=== PATIENT | male | born 1990 | race African-American/Black ===

== ENCOUNTER 2024-09-01 10:03 | Outpatient (AMB) | payer BC, SELFPAY ==
--- NOTE | 2024-09-01 10:08 | MHC.OFFVIS ---
Intake Visit Reasons: scrotal lesion Intake Note: Patient is present for [facility] Medication: Antibiotic Allergy:NONE Blood Thinner: General Farmer Required: No Allergies No Known Allergies Allergy (Verified 09/01/24 10:09) HPI Comments Details: Hubert is a pleasant male. He is a patient of . He seen for the following urologic conditions - epididymal scarring and cyst Concern regarding changes to epididymis on left side On examination has thickening of epididymis with epididymal scarring worse on the left than the right No reported prior history of STI Minimal discomfort Discussed intervention which would be operative with removal Plan follow-up six-month repeat ultrasound [facility] Medical History (Updated 09/01/24 @ 11:15 by Taran Workman MD) Adjustment disorder with mixed anxiety and depressed mood ADHD (attention deficit hyperactivity disorder) Biceps rupture, distal Weight loss Decreased appetite Blurry vision Polydipsia Scrotal pain Social History (Updated 08/26/24 @ 10:58 by MEÑO Vargas) Alcohol intake: current Alcohol intake frequency: a few times a week Alcohol type: beer Comment: 1-2 times per week Patient Tobacco Use Status: Current everyday Tobacco user Review of Systems Const Denies chills and Denies fever(s) Card Reports no additional complaints and Denies syncope Resp Denies cough GI Denies abdominal pain and Denies heartburn Reports as per HPI and Denies change in libido Neuro Denies syncope Psych Denies change in libido Endo Denies change in libido Physical Exam Const General: cooperative, healthy appearing, comfortable and no acute distress Orientation/consciousness: patient oriented x3 HEENT Face and sinus: Yes normal facial exam Mouth: moist mucous membranes Neck Neck: Yes normal visual inspection, Yes full ROM and Yes trachea midline Chest Chest palpation & inspection: normal inspection of the chest Resp Effort & Inspection: normal respiratory effort, able to speak in complete sentences and no respiratory distress GI Inspection: Yes normal to inspection Back/Spine/Pelvis Cervical Spine: normal cervical lordosis Thoracic/Lumbar Spine: thoracic and lumbar spine normal to inspection Skin General skin exam: no rashes or lesions noted Neuro General: patient oriented x3, gait normal, tone normal and moves all extremities Extrem General: Yes normal to inspection and Yes capillary refill normal Results AMB Urinalysis, Automated UA Leukoctes 0 Doe/uL Last Edit by MASON Edmond on 09/01/24 10:24 UA Nitrite Negative Last Edit by MASON Edmond on 09/01/24 10:24 UA Urobilinogen 0.2 mg/dL Last Edit by MASON Edmond on 09/01/24 10:24 UA Protein 15 mg/dL Last Edit by MASON Edmond on 09/01/24 10:24 UA pH 6.0 Last Edit by MASON Edmond on 09/01/24 10:24 UA Blood 0 Иван/uL Last Edit by MASON Edmond on 09/01/24 10:24 UA Specific [place] 1.020 Last Edit by MASON Edmond on 09/01/24 10:24 UA Ketone Negative Last Edit by MASON Edmond on 09/01/24 10:24 UA Bilirubin 0 mg/dL Last Edit by MASON Edmond on 09/01/24 10:24 UA Glucose 0 mg/dL Last Edit by MASON Edmond on 09/01/24 10:24 Results Reviewed Results Reviewed: Laboratory Last Values Urine pH (Auto) 6.0 09/01/24 10:23 Specific [place] (Auto) 1.020 09/01/24 10:23 Urine Protein (Auto) 15 mg/dL 09/01/24 10:23 Glucose (UA)(Auto) 0 mg/dL 09/01/24 10:23 Urine Ketones (Auto) Negative 09/01/24 10:23 Urine Blood (Auto) 0 Иван/uL 09/01/24 10:23 Urine Nitrite (Auto) Negative 09/01/24 10:23 Urine Bilirubin (Auto) 0 mg/dL 09/01/24 10:23 Urine Urobilinogen (Auto) 0.2 mg/dL 09/01/24 10:23 Leukocyte Esterase (Auto) 0 Doe/uL 09/01/24 10:23 Assessment & Plan Assessment & Plan (1) Epididymal cyst: Code(s): N50.3 - Cyst of epididymis Category: Medical Plan Six-month follow-up scrotal ultrasound Orders: Orders AMB Urinalysis Automated 09/01/24 Z13.9 - Encounter for screening, unspecified US scrotum 6 Months N50.3 - Cyst of epididymis Patient Instructions: Imaging studies, laboratory and physical exam results were discussed and reviewed in detail. No major barriers to patient understanding were identified. An opportunity to ask questions regarding the treatment plan was provided. All questions were answered. The patient expressed understanding and agreement with the above treatment plan. The patient is aware they should contact our office by phone for worsening of their current condition or the appearance of new urologic symptoms. Compliance is encouraged with any medications and followup testing that is ordered. It is a privilege to participate in the urologic care of your patient. If you have any questions or concerns regarding treatment for the above conditions, or other urologic issues, please do not hesitate to contact me. The office telephone contact is [phone]. This note is constructed using voice recognition software. While every effort has been made to ensure accuracy lapper errors may have been included. Yours sincerely, Dr Taran Workman MD, [facility] - Urology Providers of Expert, Compassionate Care for the Genitourinary System Coding Level of Care Code New Pt Level 3 (87254) Diagnoses Epididymal cyst N50.3
== END 2024-09-01 11:18 | disposition home or self-care (01) ==
PROVIDERS: PCP Nurse Practitioner Family; Visit Provider Urology
DX: N50.3 Cyst of epididymis (principal)
CPT/HCPCS: 99203

== ENCOUNTER → 2024-09-01 10:03 | Outpatient (BNVA) | payer BC, SELFPAY | PROVIDERS: PCP Nurse Practitioner Family; Visit Provider Urology | DX: N50.3 Cyst of epididymis (principal) | CPT/HCPCS: 81003 ==

== ENCOUNTER 2024-12-14 07:31 | Inpatient (IN) | payer BC, SELFPAY ==
--- NOTE | ~2024-12-14 | CT_ITS ---
EXAMINATION: CT ABDOMEN PELVIS WITH IV CONTRAST HISTORY: severe constipation, vomiting, distention COMPARISON: There are no prior studies for comparison. TECHNIQUE: CT scan of the abdomen and pelvis was performed following administration of 85 mL Omnipaque 350 using standard departmental protocol. Coronal and sagittal reformatted images were generated and reviewed. Oral contrast material was not administered at the request of the referring physician. This CT exam was performed with one or more of the following dose reduction techniques: automated exposure control, adjustment of the mA and/or kV according to patient size, use of iterative reconstruction technique. DLP: 553 mGy-cm FINDINGS: LOWER CHEST: The visualized lung bases are clear. There is no pleural effusion. CARDIOVASCULATURE: The heart is normal in size. There is no pericardial effusion. LIVER: The liver is normal in size and contour. No liver mass is identified. The hepatic and portal veins are patent. GALLBLADDER / BILE DUCTS: The gallbladder is unremarkable. There is no intra or extrahepatic biliary ductal dilatation. SPLEEN: The spleen is enlarged, measuring 17.1 x 8.0 x 13.3 cm. No focal splenic lesion is identified. PANCREAS: The pancreas is unremarkable in appearance. ADRENAL GLANDS: Within normal limits. KIDNEYS/RETROPERITONEUM: No renal calculi are identified. There is no hydronephrosis. No renal masses are identified. LYMPH NODES: There are multiple subcentimeter para-aortic and mesenteric lymph nodes which are more notable for number than size. VASCULATURE: The abdominal aorta is normal in caliber. MESENTERY/PERITONEUM: No free fluid. No masses. There is no free intraperitoneal gas. STOMACH: The stomach is collapsed, limiting evaluation. SMALL BOWEL: The small bowel is normal in caliber. COLON: The colon is unremarkable. APPENDIX: There is a large amount of stool throughout the colon. URINARY BLADDER/PELVIC ORGANS: The urinary bladder is unremarkable. The prostate is normal in size. BONES / SOFT TISSUES: No suspicious bony or soft tissue abnormalities. CT/CT abdomen pelvis w IV con IMPRESSION: 1. Splenomegaly. 2. Prominent para-aortic and mesenteric lymph nodes, more notable for number than size. 3. Large amount of stool throughout the colon. Electronically signed by: Rony Zee MD 12/14/2024 08:50 AM EDT RP
--- NOTE | ~2024-12-14 | CT_ITS ---
EXAMINATION: CT CHEST WITHOUT IV CONTRAST INDICATION: eval for mediastinal lymphadenopathy - high Ca++ COMPARISON: There are no prior studies available for comparison. TECHNIQUE: Helical CT scan of the chest was performed without intravenous contrast. Coronal and sagittal reformatted images were generated and reviewed. This CT exam was performed with one or more of the following dose reduction techniques: automated exposure control, adjustment of the mA and/or kV according to patient size, use of iterative reconstruction technique. DLP: 200 mGy-cm CHEST: THYROID: The thyroid is unremarkable. LUNGS: There is minimal scarring in the anterior aspect of the right upper lobe. There are no focal airspace opacities or pulmonary nodules. MEDIASTINUM: There are enlarged paratracheal lymph nodes measuring up to 1.7 cm in size. There are enlarged AP window lymph nodes measuring up to 1.4 cm. There is a 2.5 cm subcarinal lymph node. SANDEEP: Evaluation of the hilar regions is limited by lack of intravenous contrast material. However, there is prominence of the bilateral hilar regions suggestive of lymphadenopathy. CARDIOVASCULATURE: The heart is normal in size. There is no pericardial effusion. The thoracic aorta is normal in caliber. DEGREE OF CORONARY CALCIFICATION: none PLEURA: There is no pleural effusion. No pneumothorax. MAIN AIRWAYS: The mainstem bronchi and proximal branches are patent. AXILLA: There are prominent bilateral axillary lymph nodes measuring up to 1.7 cm on the right and 1.3 cm on the left. BONES AND SOFT TISSUES: Unremarkable UPPER ABDOMEN: The visualized portions of the liver and adrenals have an unremarkable unenhanced appearance. There is splenomegaly as noted on abdominal CT performed 12/14/2024. CT/CT chest wo IV con IMPRESSION: 1. Mediastinal lymphadenopathy as described. 2. Probable bilateral hilar lymphadenopathy. However, evaluation is limited by lack of intravenous contrast material. 3. Prominent bilateral axillary lymph nodes. 4. Splenomegaly is seen on prior abdominal CT. Electronically signed by: Rony Zee MD 12/15/2024 10:40 AM EDT
--- NOTE | ~2024-12-14 | XR_ITS ---
EXAMINATION: XR CHEST 1 VIEW HISTORY: ?Mediastinal lymphadenopathy/ lung lesion- high ca COMPARISON: There are no prior studies for comparison. FINDINGS: Two AP portable views of the chest performed at 3:50 PM are submitted. The lungs are expanded and clear. There is no pleural effusion, pneumothorax, or pulmonary vascular congestion. The heart is normal in size. Prominence of the paratracheal stripes and hilar regions may be due to AP portable technique. The bones are intact. XR/XR chest 1V IMPRESSION: The lungs are clear. There is prominence of the mediastinal stripes and hilar regions which may be due to AP portable technique. If there is clinical concern for mediastinal lymphadenopathy, chest CT is advised. Electronically signed by: Rony Zee MD 12/15/2024 07:12 AM EDT
[2024-12-14 07:34] VITALS: BP 134/77; PULSE 89; RESP 16; TEMP 36.3; O2SAT 100; BMI 28.1
[2024-12-14 07:53] LABS: MANUAL DIFF FLAG NO
[2024-12-14 07:56] LABS: Basophils Absolute Auto 0.1 X10*3/uL (0.0-0.2); Eosinophils Absolute Auto 0.3 X10*3/uL (0.0-0.4); Eosinophils Percent Auto 5.3 % (0-4); Hematocrit 33.4 % (42.0-52.0); Imm Gran Abs Auto 0.02 X10*3/uL (0.00-0.03); Imm Gran Pct Auto 0.3 % (0.0-0.4); Lymphocytes Percent Auto 16.4 % (20-40); Mean Corpuscular HGB Conc 32.9 g/dl (31.0-36.0); Mean Corpuscular Hemoglobin 24.8 pg (27.0-33.0); Mean Corpuscular Volume 75.4 fL (80.0-98.0); Mean Platelet Volume 9.6 fL (9.4-12.4); Monocytes Absolute Auto 1.1 X10*3/uL (0.1-1.2); Neutrophils Absolute Auto 3.6 x10*3/uL (2.0-8.3); Platelet Count 215 X10*3/uL (160-400); Red Blood Count 4.43 X10*6/uL (4.60-5.80); Red Cell Distribution Width 16.6 % (11.0-16.0); White Blood Count 6.2 X10*3/uL (4.8-10.8)
[2024-12-14] MEDS: 0.9 % Sodium Chloride 1,000 ML 999 ML IV ×2 (07:57→08:47)
--- NOTE | 2024-12-14 07:58 | ED_ITS ---
HPI - Abdominal Pain General Chief Complaint: Abdominal Pain Stated Complaint: abd pain Time Seen by Provider: 12/14/24 07:45 Source: patient and old records reviewed Mode of arrival: ambulatory Limitations: no limitations History of Present Illness ED Provider: JAMIL HPI narrative: 34 yo male with PMH of Fe deficiency anemia who has been taking Fe pills for a few weeks now reports 1.5 weeks of constipation. Vomits only on the weekend. His has been able to pass flatus. He has never had any abdominal surgery. He never had constipation as a child. He notes his PCP started him on Fe. He denies fevers. He can tolerate PO. Has not taken any OTC meds for constipation. He was seen at urgent care they requested he go to ED for obstruction rule out. MD elicited complaint: abdominal pain Onset (ago): day(s) (10) Pain Consistency: intermittent Location: diffuse Severity: mild Quality: fullness Radiation: none Migration to: no migration Exacerbating factors: eating Relieving factors: nothing Context: other Associated symptoms: constipation Related Data Home Medications ?Medication ?Instructions ?Recorded ?Confirmed fluoxetine 40 mg capsule mg PO 09/01/24 quetiapine 25 mg tablet 25 mg PO BEDTIME 09/01/24 zolpidem 10 mg tablet 10 mg PO BEDTIME PRN 09/01/24 Allergies Allergy/AdvReac Type Severity Reaction Status Date / Time No Known Allergies Allergy Verified 12/14/24 07:36 Review of Systems Review of Systems Constitutional : No Weight loss, No Fever, No Chills ENT/Mouth : No sore throat, No Rhinorrhea Eyes: No Swelling, No Redness Cardiovascular : No Chest Pain, No SOB, NoEdema Respiratory : No Cough, No Sputum, No Wheezing Gastrointestinal : Positive Nausea, Positive Vomiting, no Diarrhea, positive abdominal Pain, No Hematochezia, No Melena, pos constipation Genitourinary : No Dysuria, No Urinary Frequency, No Hematuria, No Urgency Musculoskeletal : No joint pain, No Myalgias, No Joint Swelling Skin : No Skin Lesions, No rash Neuro : No Weakness, No Numbness, No Dizziness, No Headache All other systems reviewed and are negative. [facility] Past Medical History Attestation statement: The following information was validated with the patient. Source: old records reviewed Medical History Adjustment disorder with mixed anxiety and depressed mood ADHD (attention deficit hyperactivity disorder) Biceps rupture, distal Weight loss Decreased appetite Blurry vision Polydipsia Scrotal pain Social History Social History Alcohol intake: current Alcohol intake frequency: a few times a week Alcohol type: beer Comment: 1-2 times per week Patient Tobacco Use Status: Current everyday Tobacco user Smoked in Last 30 Days: No Use of substances other than those prescribed or required for medical reasons: No Advance Directives: No Advance Directives Information Provided: Yes Do you have a plan to hurt others: No Plan Physical Exam ED Vital Signs: Vital Signs - 24 hr 12/14/24 07:34 Temperature 97.4 F Pulse Rate 89 Respiratory Rate 16 Blood Pressure 134/77 Pulse Oximetry 100 Oxygen Delivery Method Room Air BMI result Body Mass Index 28.1 Appearance: Alert. Oriented X3. No acute distress. Eyes: Pupils equal, round and reactive to light. ENT: Pharynx normal. Neck: Normal inspection. Neck supple. CVS: Normal heart rate and rhythm. Pulses normal. Respiratory: No respiratory distress. Breath sounds normal. Abdomen: Soft mild distention no rebound or guarding Skin: Skin warm and dry. Normal skin color. Extremities: No lower extremity edema. Neuro: Oriented X 3. No motor deficit. No sensory deficit. CN2-12 intact Medical Decision Making Medical Decision Making [facility] Narrative: 34 yo male with Fe deficiency anemia on Fe pills recently now with constipation intermittent vomiting is able to pass gas. Given the degree of constipation and lack of BM x 7 days with some distention I am going to obtain lytes, hydrate, CT scan for mass/obstruction/ileus. If negative for acute bowel pathology will start on regimen and take off Fe pills. Differential Diagnosis Differential Diagnoses: The differential diagnosis associated with the presentation includes constipation, ileus, SBO, mass Admission/Observation Consideration of admission/observation: Escalation of care including admission/observation considered admit for fluids/meds/calcium recheck Consult Healthcare Provider Management of the patient was discussed with: Hospitalist (will admit to hospitalist 910am message sent) Lab Data [facility] Lab Attestation statement: I reviewed the patient's lab results. 12/14/24 07:49 12/14/24 07:49 Labs: Lab Results 12/14/24 Range/Units 07:49 WBC 6.2 (4.8-10.8) X10*3/uL RBC 4.43 L (4.60-5.80) X10*6/uL Hgb 11.0 L (14.0-18.0) g/dl Hct 33.4 L (42.0-52.0) % MCV 75.4 L (80.0-98.0) fL MCH 24.8 L (27.0-33.0) pg MCHC 32.9 (31.0-36.0) g/dl RDW 16.6 H (11.0-16.0) % Plt Count 215 (160-400) X10*3/uL MPV 9.6 (9.4-12.4) fL Immature Gran % (Auto) 0.3 (0.0-0.4) % Neut % (Auto) 59.0 (45-73) % Lymph % (Auto) 16.4 L (20-40) % [place] % (Auto) 18.0 H (2-11) % Eos % (Auto) 5.3 H (0-4) % Baso % (Auto) 1.0 (0-2) % Lymph # (Auto) 1.0 L (1.2-4.9) X10*3/uL [place] # (Auto) 1.1 (0.1-1.2) X10*3/uL Eos # (Auto) 0.3 (0.0-0.4) X10*3/uL Baso # (Auto) 0.1 (0.0-0.2) X10*3/uL Abs Immat Gran (auto) 0.02 (0.00-0.03) X10*3/uL Absolute Neuts (auto) 3.6 (2.0-8.3) x10*3/uL Absolute Nucleated RBC 0.000 (0.0-0.012) X10*3/uL Nucleated RBC % (auto) 0.0 (0.0-0.2) /100WBC Sodium 139 (135-145) mmol/L Potassium 3.5 (3.3-5.1) mmol/L Chloride 107 (96-108) mmol/L Carbon Dioxide 27 (22-29) mmol/L Anion Gap 9 L (12-20) BUN 19 H (9-16) mg/dL Creatinine 1.52 H (0.5-1.4) mg/dL Estim Creat Clear Calc 75.1 Estimated GFR 53 Random Glucose 95 (60-115) mg/dL Calcium 12.6 H* (8.4-10.2) mg/dL Magnesium 1.9 (1.6-2.6) mg/dL Total Bilirubin 0.3 (0.0-1.0) mg/dL AST 22 (5-37) U/L ALT 17 (0-40) U/L Alkaline Phosphatase 89 (39-117) U/L Total Protein 8.0 (6.5-8.0) g/dL Albumin 3.8 (3.5-5.0) g/dL Lipase 60 (8-78) U/L Independent Interpretation I performed an independent interpretation of an: EKG and CT Scan (constipation) Interpretation: Rate: 72 Rhythm: NSR Bly: normal Normal P waves. Normal RONNY. Normal QRS complex. ST T wave : normal no HYACINTH qTC: 385 prior studies: no acute ischemia The study has been interpreted contemporaneously by me. . Radiology Impression Discussion of test interpretation with radiology: I have reviewed the radiologist's reading. External Record Review External record reviewed: Outpatient record Medications Administered Generic Name Dose Route Start Last Admin Trade Name Freq PRN Reason Stop Dose Admin Sodium Chloride 1,000 mls @ 999 mls/hr 12/14/24 08:20 12/14/24 08:47 Ns IV 12/14/24 09:20 999 mls/hr .Q1H1M ONE Administration Discontinued Medications Generic Name Dose Route Start Last Admin Trade Name Freq PRN Reason Stop Dose Admin Sodium Chloride 1,000 mls @ 999 mls/hr 12/14/24 07:55 12/14/24 07:57 Ns IV 12/14/24 08:55 999 mls/hr .Q1H1M ONE Administration Iohexol 100 ml 12/14/24 08:37 12/14/24 08:38 Iohexol 350 Mg/Ml 100 Ml Infus..Btl IV 12/14/24 08:38 85 ml ONCE ONE Administration Discharge Plan Discharge Clinical Impression: Constipation, Acute hyperkalemia, Acute dehydration Patient Disposition: Admitted As Inpatient Prescriptions: No Action zolpidem 10 mg tablet 10 mg PO BEDTIME PRN fluoxetine 40 mg capsule PO quetiapine 25 mg tablet 25 mg PO BEDTIME Print Language: Welsh
--- OUTSIDE RECORDS SUMMARY | 2024-12-14 07:59 | XMS_ITS | Clinical Summary ---
Author Organization [facility] [address] [place] [address] [place] [phone] Phone Care Team Providers Care Outside Sales Inspector Name Role Phone Castro Manzanares MD Primary Care Provider [phone] Allergies No known active allergies Medications FLUoxetine (PROzac) 20 mg capsuleIndicati ons:major depressive disorder Take 4 capsules (80 mg total) by mouth 1 (one) time each day. Prescribe by Psychiatrist. Active zolpidem (AMBIEN) 10 mg tablet Take 1 tablet (10 mg total) by mouth at bedtime as needed for sleep. Prescribe by Psych Active ferrous sulfate 325 mg (65 mg iron) EC tablet Take 1 tablet (325 mg total) by mouth 2 (two) times a day. Do not crush, chew, or split. 90 each 1 5 09/29/19 26 Active senna-docusate (PERICOLACE) 8.6-50 mg per tablet Take 1 tablet by mouth 1 (one) time each day. 30 each 5 09/29/19 26 Active ergocalciferol (VITAMIN D-2) 1,250 mcg (50,000 unit) capsule Take 1 capsule (50,000 Units total) by mouth 1 (one) time per week. 12 capsule 5 Active Active Problems Problem Noted Date Diagnosed Date Biceps rupture, distal, right, sequela 3 ADHD (attention deficit hyperactivity disorder) 09/07/2019 Overview (06/14/2024): S/p formal neuropsych testing 08/2019 Adjustment disorder with mixed anxiety and depre ssed mood 04/21/2019 Polydipsia Blurry vision Decreased appetite Weight loss Low blood pressure reading Encounters Date Type Department Care Team Description 09/22/2024 Telephone Adult [address] [place], [place] [phone] Britta Casas, AMEYA Lab Results (Vitamin D extremely low. /CBC show anemia ) 09/21/2024 2:30 PM EST Office Visit Adult [address] [phone] Britta Casas, AMEYA Unintentional weight loss (Primary Dx); Scrotal mass; Tiredness; Elevated LFTs; Moderate episode of recurrent major depressive disorder (CMS/HCC) from Last 3 Months Immunizations Name Administration Dates Next Due DTaP, Unspecified 06/08/1992,03/21/1992,01/25/19 92 HiB 06/08/1992,03/21/1992,01/26/1992 OPV 03/21/1992,01/26/1992 Tdap Tetanus diptheria acell ular pertussis (Boostrix; Adacel) 7yo and older 11/14/2018 Surgical History Surgery Date Site/Laterality Comments OTHER SURGICAL HISTORY PROCEDURE: DENIES PREVIOUS SURGERY Medical History Medical History Date Comments Adhd 10/13/2018 DX:ADHD Depression 10/13/2018 DX:Depression Family History Medical History Relation Name Comments No Known Problems Brother 1 No Known Problems Brother 2 No Known Problems Brother 3 No Known Problems Brother 4 No Known Problems Brother 5 No Known Problems Brother 6 Other: organ failure Father No Known Problems Mother No Known Problems Sister 1 No Known Problems Sister 2 No Known Problems Sister 3 No Known Problems Sister 4 No Known Problems Sister 5 No Known Problems Sister 6 No Known Problems Sister 7 Relation Name Status Comments Brother 1 Alive Brother 2 Alive Brother 3 Alive Brother 4 Alive Brother 5 Alive Brother 6 Alive Father Mother Alive Sister 1 Alive Sister 2 Alive Sister 3 Alive Sister 4 Alive Sister 5 Alive Sister 6 Alive Sister 7 Alive Social History Tobacco Use Types Packs/Day Years Used Date Smoking Tobacco: Light Smoker Smokeless Tobacco: Never Alcohol Use Standard Drinks/Week Comments Yes 0 (1 standard drink = 0.6 oz pur e alcohol) Sex and Gender Information Value Date Recorded Sex Assigned at Not on file Legal Sex Male 8:42 PM EST Gender Identity Not on file Sexual Orientation Not on file Obstetrics History Last Filed Vital Signs Vital Sign Reading Time Taken Comments Blood Pressure 99/60 09/21/2024 2:37 PM EST Pulse 100 09/21/2024 2:37 PM EST Temperature 36.2 ??C (97.2 ??F) 09/21/2024 2:37 PM ES T Respiratory Rate 16 09/21/2024 2:37 PM EST Oxygen Saturation 98% 09/21/2024 2:37 PM EST Inhaled Oxygen Concentration - - Weight 88.5 kg (195 lb 3.2 oz) 09/21/2024 2:37 P M EST Height 175.3 cm (5' 9 ) 09/21/2024 2:37 PM EST Body Mass Index 28.83 09/21/2024 2:37 PM EST Plan of Treatment Upcoming Encounters Date Type Department Care Team (Late st Contact Info) Description 12/23/2024 9:45 AM EDT Office Visit Adult Medicine [facility] [address] [place] [phone] Castro Manzanares MD [address] [place] [address] Health Maintenance Due Date Last Done Comments IPV Vaccines (3 of 3 - 4-dose series) 1995 03/21/1992, 01/26/1992 Hepatitis B Vaccines (1 of 3 - 19+ 3-dose series) 2010 Pneumococcal Vaccine: Pediatrics (0 to 5 Years) and At-Risk Patients (6 to 64 Years) (1 of 2 - PCV) 2010 HIV Screening 08/18/2022 Hepatitis C Screening 08/18/2022 Social Influencers of Health Screening 08/18/2022 COVID-19 Vaccine ( - 2023- season) 2024 Influenza Vaccine (#1) 2024 Depression Screening 05/18/2025 05/18/2024 DTaP,Tdap,and Td Vaccines (5 - Td or Tdap) 11/14/2028 11/14/2018, 06/08/1992, 03/21/1992, Additional history exists Cholesterol Screening (Lipid Panel) 04/22/2029 04/22/2024, 04/22/2024 HIB Vaccines Aged Out 06/08/1992, 03/09, 01/26/1992 No longer eligible based on patient's age to complete this topic HPV Vaccines Aged Out No longer eligi ble based on patient's age to complete this topic Hepatitis A Vaccines Aged Out No long er eligible based on patient's age to complete this topic MMR Vaccines Aged Out No longer eligi ble based on patient's age to complete this topic Meningococcal ACWY Vaccine Aged Out N o longer eligible based on patient's age to complete this topic Meningococcal B Vacine Aged Out No lo nger eligible based on patient's age to complete this topic RSV Immunization Patients Under 20 months Aged Out No longer eligible based on patient's age to complete this topic Varicella Vaccines Aged Out No longer eligible based on patient's age to complete this topic Procedures Procedure Name Priority Date/Time Associated Diagnosis Comments BILIRUBIN DUPLICATE PROCEDURE TO ORDER Routine 09/21/2024 3:25 PM EST Unintentional weight loss Elevated LFTs CBC WITH AUTO DIFFERENTIAL Routine 09/21/2024 3:25 PM EST Unintentional weight loss Tiredness Moderate episode of recurrent major depressive disorder (CMS/HCC) CBC AND DIFFERENTIAL Routine 09/21/2024 3:25 PM EST Unintentional weight loss Tiredness Moderate episode of recurrent major depressive disorder (CMS/HCC) FOLATE Routine 09/21/2024 3:25 PM EST Unintentional weight loss Tiredness Moderate episode of recurrent major depressive disorder (CMS/HCC) VITAMIN B12 Routine 09/21/2024 3:25 PM EST Unintentional weight loss Tiredness Moderate episode of recurrent major depressive disorder (CMS/HCC) VITAMIN D 25 HYDROXY Routine 09/21/2024 3:25 PM EST Unintentional weight loss Tiredness Moderate episode of recurrent major depressive disorder (CMS/HCC) THYROID STIMULATING HORMONE WITH REFLEX TO FREE T4 AND FREE T3 Routine 09/21/2024 3:25 PM EST Unintentional weight loss Tiredness Moderate episode of recurrent major depressive disorder (CMS/HCC) COMPREHENSIVE METABOLIC PANEL Routine 09/21/2024 3:25 PM EST Unintentional weight loss HM DEPRESSION SCREENING Routine 05/18/2024 LIPID PANEL Routine 04/22/2024 from Last 3 Months or Most Recently Relevant to Health Maintenance Results * Bilirubin duplicate procedure to order (09/21/2024 3:25 PM EST) Total Bilirubin 0.4 0.0 - 1.4 mg/dL LAB CHEMISTRY METHOD 09/21/2024 7:38 PM EST [facility] Bilirubin, Direct <0.1 0.0 - 0.3 mg/dL LAB CHEMISTRY METHOD 09/21/2024 7:38 PM EST [facility] Bilirubin, Indirect LAB CHEMISTRY METHOD 09/21/2024 7:38 PM EST [facility] Comment:Unable to calculate Indirect Bilirubin. Blood Venous blood specimen / Unknown Venipuncture / Unknown 09/21/2024 3:25 PM EST 09/21/2024 3:25 PM EST us Britta Casas DREDGE PUMPER LAB BLOOD ORDERABLES Final R esult [facility] [address] [place] [address], * Thyroid stimulating hormone with reflex to free t4 and free t3 (09/21/2024 3:25 PM EST) TSH 1.81 0.40 - 4.00 mcIU/mL LAB CHEMISTRY METHOD 09/21/2024 7:20 PM EST [facility] Blood Venous blood specimen / Unknown Venipuncture / Unknown 09/21/2024 3:25 PM EST 09/21/2024 3:25 PM EST us Britta Casas [employer]ED[employer]ER LAB BLOOD ORDERABLES Final R esult [facility] [address] [place] [address], * (ABNORMAL) CBC auto differential (09/21/2024 3:25 PM EST) WBC 3.4(L) 4.8 - 10.8 K/mcL LAB HEMETOLOGY METHOD 09/21/2024 4:47 PM [facility] RBC 5.20 4.50 - 5.50 M/mcL LAB HEMETOLOGY METHOD 09/21/2024 4:47 PM [facility] Hemoglobin 12.3(L) 13.5 - 17.5 g/dL LAB HEMETOLOGY METHOD 09/21/2024 4:47 PM [facility] Hematocrit 39.2(L) 42.0 - 54.0 % LAB HEMETOLOGY METHOD 09/21/2024 4:47 PM [facility] MCV 75.0(L) 79.0 - 98.0 FL LAB HEMETOLOGY METHOD 09/21/2024 4:47 PM [facility] MCH 23.5(L) 27.0 - 32.0 pcg LAB HEMETOLOGY METHOD 09/21/2024 4:47 PM [facility] MCHC 31.4(L) 32.0 - 37.0 g/dL LAB HEMETOLOGY METHOD 09/21/2024 4:47 PM [facility] RDW 15.0 11.0 - 15.0 % LAB HEMETOLOGY METHOD 09/21/2024 4:47 PM [facility] Platelets 231 130 - 400 K/mcL LAB HEMETOLOGY METHOD 09/21/2024 4:47 PM [facility] MPV 10.5 7.0 - 11.0 FL LAB HEMETOLOGY METHOD 09/21/2024 4:47 PM [facility] NRBC 0.0 <1.0 % LAB HEMETOLOGY METHOD 09/21/2024 4:47 PM [facility] NRBC Absolute 0.00 <0.10 K/mcL LAB HEMETOLOGY METHOD 09/21/2024 4:47 PM [facility] Neutrophils Relative 50.6 % LAB HEMETOLOGY METHOD 09/21/2024 4:47 PM [facility] Lymphocytes Relative 18.2 % LAB HEMETOLOGY METHOD 09/21/2024 4:47 PM [facility] Monocytes Relative 20.5 % LAB HEMETOLOGY METHOD 09/21/2024 4:47 PM [facility] Eosinophils Relative 8.3 % LAB HEMETOLOGY METHOD 09/21/2024 4:47 PM [facility] Basophils Relative 1.8 % LAB HEMETOLOGY METHOD 09/21/2024 4:47 PM [facility] Immature Granulocytes Relative 0.6 % LAB HEMETOLOGY METHOD 09/21/2024 4:47 PM [facility] Neutrophils Absolute 1.70 1.50 - 7.00 K/mcL LAB HEMETOLOGY METHOD 09/21/2024 4:47 PM [facility] Lymphocytes Absolute 0.61(L) 1.00 - 5.00 K/mcL LAB HEMETOLOGY METHOD 09/21/2024 4:47 PM [facility] Monocytes Absolute 0.69 0.20 - 1.00 K/mcL LAB HEMETOLOGY METHOD 09/21/2024 4:47 PM [facility] Eosinophils Absolute 0.28 0.00 - 0.50 K/mcL LAB HEMETOLOGY METHOD 09/21/2024 4:47 PM [facility] Basophils Absolute 0.06 0.00 - 0.20 K/mcL LAB HEMETOLOGY METHOD 09/21/2024 4:47 PM EST [facility] Immature Granulocytes Absolute 0.02 0.00 - 0.03 K/[facility] LAB HEMETOLOGY METHOD 09/21/2024 4:47 PM EST [facility] Blood Venous blood specimen / Unknown Venipuncture / Unknown 09/21/2024 3:25 PM EST 09/21/2024 3:25 PM EST Britta Casas [employer]ED[employer]ER LAB BLOOD ORDERABLES Final R esult [facility] [address] [place] [address], [place] [phone] * (ABNORMAL) Vitamin D 25 hydroxy (09/21/2024 3:25 PM EST) Vit D, 25-Hydroxy 6.6(L) 30.0 - 80.0 ng/mL LAB CHEMISTRY METHOD 09/21/2024 7:20 PM EST [facility] Blood Venous blood specimen / Unknown Venipuncture / Unknown 09/21/2024 3:25 PM EST 09/21/2024 3:25 PM EST Britta Casas [employer]ER LAB BLOOD ORDERABLES Final R esult [facility] [address] [place] [address], [place] [phone] * Folate (09/21/2024 3:25 PM EST) Folate 7.6 2.8 - 17.0 ng/ml LAB CHEMISTRY METHOD 09/21/2024 7:38 PM EST [facility] Blood Venous blood specimen / Unknown Venipuncture / Unknown 09/21/2024 3:25 PM EST 09/21/2024 3:25 PM EST Britta Casas [employer]ED[employer]ER LAB BLOOD ORDERABLES Final R esult [facility] [address] [place] [address], [place] [phone] * Vitamin B12 (09/21/2024 3:25 PM EST) Pathologist [facility] Vitamin B-12 761 250 - 900 pcg/mL LAB CHEMISTRY METHOD 09/21/2024 7:38 PM [facility] Blood Venous blood specimen / Unknown Venipuncture / Unknown 09/21/2024 3:25 PM EST 09/21/2024 3:25 PM EST Britta Casas [employer]ED[employer]ER LAB BLOOD ORDERABLES Final R esult Performing Organization Address City/[facility]/ZIP Co de Phone Number [facility] [address] [place] [address], [place] [phone] * Comprehensive metabolic panel (09/21/2024 3:25 PM EST) [facility] Sodium 134 133 - 145 mmol/L LAB CHEMISTRY METHOD 09/21/2024 7:38 PM [facility] Potassium 3.8 3.5 - 5.5 mmol/L LAB CHEMISTRY METHOD 09/21/2024 7:38 PM [facility] Chloride 102 96 - 110 mmol/L LAB CHEMISTRY METHOD 09/21/2024 7:38 PM [facility] CO2 23 21 - 32 mmol/L LAB CHEMISTRY METHOD 09/21/2024 7:38 PM [facility] Anion Gap 9 3 - 11 LAB CHEMISTRY METHOD 09/21/2024 7:38 PM [facility] Glucose 73 70 - 100 mg/dL LAB CHEMISTRY METHOD 09/21/2024 7:38 PM [facility] BUN 9 5 - 25 mg/dL LAB CHEMISTRY METHOD 09/21/2024 7:38 PM [facility] Creatinine 0.99 0.70 - 1.30 mg/dL LAB CHEMISTRY METHOD 09/21/2024 7:38 PM [facility] eGFR 104 >=60 mL/min/1. 73m2 LAB CHEMISTRY METHOD 09/21/2024 7:38 PM [facility] Comment:Calculation based on the??Chronic Kidney Disease Epidemiology Collaboration (CKD-EPI) equation refit??without adjustment for race. BUN/Creatinine Ratio 9.1 LAB CHEMISTRY METHOD 09/21/2024 7:38 PM [facility] Calcium 8.7 8.5 - 10.5 mg/dL LAB CHEMISTRY METHOD 09/21/2024 7:38 PM [facility] AST (SGOT) 32 10 - 42 unit/L LAB CHEMISTRY METHOD 09/21/2024 7:38 PM [facility] ALT (SGPT) 43 10 - 60 unit/L LAB CHEMISTRY METHOD 09/21/2024 7:38 PM [facility] Alkaline Phosphatase 114 42 - 121 unit/L LAB CHEMISTRY METHOD 09/21/2024 7:38 PM [facility] Total Protein 7.8 6.0 - 8.0 g/dL LAB CHEMISTRY METHOD 09/21/2024 7:38 PM [facility] Albumin 3.3 3.2 - 5.0 g/dL LAB CHEMISTRY METHOD 09/21/2024 7:38 PM [facility] Total Bilirubin 0.4 0.0 - 1.4 mg/dL LAB CHEMISTRY METHOD 09/21/2024 7:38 PM [facility] Blood Venous blood specimen / Unknown Venipuncture / Unknown 09/21/2024 3:25 PM EST 09/21/2024 3:25 PM EST us Britta Casas NP LAB BLOOD ORDERABLES Final R esult [facility] [address] [place] [address], * Depression Screening (05/18/2024) Depression Screening Abstracted Historical Provider HEALTH MAINTENANCE Final Result * (ABNORMAL) Lipid panel (04/22/2024) LDL/HDL Ratio 4 0 - 4 Triglycerides 63 0 - 150 mg/dL Cholesterol 133 0 - 200 mg/dL HDL 36(A) >=40 mg/dL LDL Cholesterol 85 0 - 100 mg/dL Blood Venous blood specimen / Unknown Historical Provider LAB BLOOD ORDERABLES Usha l Result from Last 3 Months or Most Recently Relevant to Health Maintenance Insurance [facility] Care Teams Outside Sales Inspector Relationship Specialty Start Date End Date Castro Manzanares MD [address] [facility] [place] [address] PCP - General Internal Medicine 06/25/22
--- NOTE | 2024-12-14 08:20 | ECG_ITS ---
Test Reason : HYPERCALCEMIA Blood Pressure : */* mmHG Vent. Rate : 72 BPM Atrial Rate : 72 BPM P-R Int : 156 ms QRS Dur : 86 ms QT Int : 352 ms P-R-T Axes : 77 58 47 degrees QTcB Int : 385 ms Normal sinus rhythm Normal ECG No previous ECGs available Referred By: Darlin Whiteside Electronically Signed By: Syd Riddle
[2024-12-14 08:21] LABS: Alanine Aminotransferase 17 U/L (0-40); Albumin Level 3.8 g/dL (3.5-5.0); Alkaline Phosphatase 89 U/L (39-117); Anion Gap 9 (12-20); Aspartate Amino Transferase 22 U/L (5-37); Bilirubin Total 0.3 mg/dL (0.0-1.0); Blood Urea Nitrogen 19 mg/dL (9-16); Calcium 12.6 mg/dL (8.4-10.2); Carbon Dioxide 27 mmol/L (22-29); Chloride 107 mmol/L (96-108); Creatinine Clr Calc Pharmacy 75.1; Estimated Glomerular Filt Rate 53; Glucose Random 95 mg/dL (60-115); Lipase 60 U/L (8-78); Magnesium 1.9 mg/dL (1.6-2.6); Potassium 3.5 mmol/L (3.3-5.1); Sodium 139 mmol/L (135-145)
--- NOTE | 2024-12-14 08:25 | MHC.EDTECH ---
EKG is not done , Patient is not in the room(CT Test)
[2024-12-14] MEDS: iohexoL 350 MG/ML 100 ML INFUS..BTL IV (08:38)
--- NOTE | 2024-12-14 08:49 | PC.NURSE ---
Pt alert and oriented, breathing even and unlabored, skin warm and dry. Pt reporting lower ABD pain and no BM X1 week, ?poss bowel obstruction at urgent care. Pt has not taken any OTC meds. Reporting pain 5/10 lower ABD. No fevers, vomiting and no decreased PO intake.
[2024-12-14] MEDS: 0.9 % Sodium Chloride 1,000 ML 100 ML IVCONT ×2 (09:53→19:21)
--- NOTE | 2024-12-14 09:56 | PM.IMHP ---
History of Present Illness Date of Service: 12/14/24 Chief Complaint: constipation A 34-year-old male with a past medical history of anxiety/depression, recently diagnosed iron deficiency anemia on oral iron supplementation who presents to the emergency room with a 2 week history of constipation and intermittent nausea/vomiting. The patient states that he has been started on iron supplementation about 1 month prior to hospitalization. Since the last 2 weeks, the patient reports no bowel movements and several episodes of vomitus. He reports associated, intermittent/crampy abdominal pain in the mid abdomen. He denies any fevers or chills. He denies any diarrhea. The patient states that he went to urgent Care on 12/11/2024 who recommended going to the emergency room should his symptoms not improved/resolved. Due to the ongoing constipation he presented to the emergency room In the ED, the patient was found to have imaging consistent with constipation. There are some noted para-aortic lymph nodes as well. Furthermore, his chemistries revealed hypercalcemia and a serum creatinine of 1.55. Given these findings with the associated constipation, the patient will be admitted to the hospital for further care. Review of Systems Review of Systems: Negative except HPI/interval history. [facility] Medical History Adjustment disorder with mixed anxiety and depressed mood ADHD (attention deficit hyperactivity disorder) Biceps rupture, distal Weight loss Decreased appetite Blurry vision Polydipsia Scrotal pain Social History Alcohol intake: current Alcohol intake frequency: a few times a week Alcohol type: beer Comment: 1-2 times per week Patient Tobacco Use Status: Current everyday Tobacco user Smoked in Last 30 Days: No Use of substances other than those prescribed or required for medical reasons: No Advance Directives: No Advance Directives Information Provided: Yes Do you have a plan to hurt others: No Plan Meds Allergies Allergy/AdvReac Type Severity Reaction Status Date / Time No Known Allergies Allergy Verified 12/14/24 07:36 Active Medications: Current Medications Acetaminophen (Acetaminophen 325 Mg Tablet) 650 mg PO Q6H PRN PRN Reason: Pain, Mild 1-3,fever,headache Sodium Chloride (Ns) 1,000 mls @ 100 mls/hr IVCONT .Q10H LEO Last Admin: 12/14/24 09:53 Dose: 100 mls/hr Lactated Ringer's (Lr) 1,000 mls @ 100 mls/hr IVCONT .Q10H LEO Stop: 12/15/24 05:59 Ondansetron HCl (Ondansetron Hcl 4 Mg/2 Ml Vial) 4 mg IVPUSH Q8H PRN PRN Reason: Nausea and Vomiting Polyethylene Glycol (Polyethylene Glycol 3350 17 Gm Powd.Pack) 17 gm PO DAILY [facility] Home Medications ?Medication ?Instructions ?Recorded ?Confirmed ?Last Taken ?Type zolpidem 10 mg tablet 10 mg PO BEDTIME PRN Sleep 09/01/24 12/14/24 12/13/24 History fluoxetine 40 mg capsule 80 mg PO DAILY 12/14/24 12/14/24 12/13/24 History Physical Exam Vital Signs and Narrative: Vital Signs: Last Vital Signs Temp 97.4 F 12/14/24 07:34 Pulse 89 12/14/24 07:34 Resp 16 12/14/24 07:34 BP 134/77 12/14/24 07:34 Pulse Ox 100 12/14/24 07:34 O2 Del Method Room Air 12/14/24 07:34 BMI result Body Mass Index 28.1 Const: Other: Constitutional - Awake and Alert, No apparent distress Eyes - PERRLA, EOMI Cardiovascular - S1S2, RRR, No edema Respiratory - Normal lung expansion, Normal respiratory effort, No respiratory distress, CTA bilaterally Gastrointestinal - NT / ND; +BS; No rebound or guarding - No CVA tenderness Extremities - no calf tenderness bilaterally, no swelling Musculoskeletal - Normal inspection, normal ROM Skin - Warm/Dry Neurological - Alert & oriented x3, No focal deficit Psychological - Appropriate affect Results Labs 12/14/24 07:49 12/14/24 07:49 Labs: Laboratory Results - last 24 hr 12/14/24 07:49 MCV 75.4 L MCH 24.8 L MCHC 32.9 RDW 16.6 H Plt Count 215 MPV 9.6 Immature Gran % (Auto) 0.3 Neut % (Auto) 59.0 Lymph % (Auto) 16.4 L [place] % (Auto) 18.0 H Eos % (Auto) 5.3 H Baso % (Auto) 1.0 Lymph # (Auto) 1.0 L [place] # (Auto) 1.1 Eos # (Auto) 0.3 Baso # (Auto) 0.1 Abs Immat Gran (auto) 0.02 Absolute Neuts (auto) 3.6 Absolute Nucleated RBC 0.000 Nucleated RBC % (auto) 0.0 Anion Gap 9 L Estim Creat Clear Calc 75.1 Estimated GFR 53 Random Glucose 95 Calcium 12.6 H* Magnesium 1.9 Total Bilirubin 0.3 AST 22 ALT 17 Alkaline Phosphatase 89 Total Protein 8.0 Albumin 3.8 Lipase 60 Imaging Radiologist's Impressions: Impressions Abdomen/Pelvis CT 12/14/24 07:56 IMPRESSION: 1. Splenomegaly. 2. Prominent para-aortic and mesenteric lymph nodes, more notable for number than size. 3. Large amount of stool throughout the colon. Electronically signed by: Rony Zee MD 12/14/2024 08:50 AM EDT RP Assessment and Plan (1) Constipation: Qualifiers: Constipation type: unspecified constipation type Qualified Code(s): K59.00 - Constipation, unspecified Status: Acute (2) Hypercalcemia: Status: Acute Plan 34 yo M with a PMH of anxiety/depression and JEAN-PIERRE who is recently started on iron replacement. He presents with 2 weeks of constipation. Work up in th ED revealed MARCIE + HyperCa. He will be admitted for further treatment. 1. Hypercalcemia + GI symptoms; EKG without changes will give IVF and repeat Ca further work up pending response consider nephrology consult 2. Severe constipation reports last BM 2 weeks ago. Possibly related to #1 vs side effect from iron supplementation will start bowel regime 3. MARCIE baseline unknown, presumed to be in normal range re-eval after IVF 4. Mood continue baseline meds 5. Prominent lymph nodes, para-aortic/mesenteric suspected reactive 6. JEAN-PIERRE hold po iron replacement for now Full Code DVT pptx, low risk -- early ambulation Pt with hyperCa and associated GI symptoms with suspected MARCIE, therefore expected to require at a minimum 2 midnights in the hospital for treatment, work up and monitoring of response. Hence, will be admitted as inpt. Quality Stroke Does the patient have a stroke diagnosis?: No VTE Prior VTE?: No VTE Risk Level:: Medical - low VTE Device Contraindication: N/A - Device Ordered VTE Drug Contraindication: Treatment Not Indicated
[2024-12-14] MEDS: polyethylene glycoL 3350 17 GM POWD.PACK PO (10:05)
[2024-12-14 10:39] VITALS: BP 136/72; PULSE 83; RESP 16; TEMP 36.7; O2SAT 100
--- NOTE | 2024-12-14 10:50 | PHA.MEDREC ---
Addendum entered by Rai Osei devonte 12/14/24 11:36: MED REC CHECKED BY [facility] Original Note: Pharmacy Consult ? Medication Reconciliation Pharmacy has completed the medication reconciliation. Spoke to patient to confirm med list. Patient states she is no longer taking Vitamin D2 1,250 mg, Ferrous Sulfate 325 mg, Quetiapine 25 mg. Patient states he is taking Buspirone but couldn't tell me the dosing. Called [facility] to confirm, however there is no history of patient taking.
[2024-12-14] MEDS: FLUoxetine HCl 20 MG CAPSULE 80 MG PO (11:46)
[2024-12-14 12:16] VITALS: BP 127/79; PULSE 55; RESP 16; TEMP 36.6; O2SAT 100
[2024-12-14 13:26] VITALS: BMI 28.0
[2024-12-14 13:38] LABS: Anion Gap 9 (12-20); Blood Urea Nitrogen 15 mg/dL (9-16); Calcium 12.1 mg/dL (8.4-10.2); Carbon Dioxide 26 mmol/L (22-29); Chloride 107 mmol/L (96-108); Creatinine Clr Calc Pharmacy 86.5; Estimated Glomerular Filt Rate > 60; Glucose Random 90 mg/dL (60-115); Potassium 3.6 mmol/L (3.3-5.1); Sodium 138 mmol/L (135-145)
[2024-12-14 13:44] VITALS: BP 133/98; PULSE 69; RESP 16; TEMP 36.1; O2SAT 99
[2024-12-14 15:21] VITALS: BP 142/75; PULSE 73; RESP 18; TEMP 36.5; O2SAT 100
[2024-12-14 18:51] LABS: Total Protein Urine Random < 7 mg/dL (<12)
[2024-12-14 19:12] VITALS: BP 145/73; PULSE 81; RESP 18; TEMP 36.6; O2SAT 99
[2024-12-15 03:26] VITALS: BP 135/70; PULSE 78; RESP 18; TEMP 36.4; O2SAT 96
[2024-12-15] MEDS: 0.9 % Sodium Chloride 1,000 ML 100 ML IVCONT (04:47)
[2024-12-15 06:39] LABS: Anion Gap 11 (12-20); Blood Urea Nitrogen 12 mg/dL (9-16); Calcium 11.6 mg/dL (8.4-10.2); Carbon Dioxide 23 mmol/L (22-29); Chloride 108 mmol/L (96-108); Creatinine Clr Calc Pharmacy 94.3; Estimated Glomerular Filt Rate > 60; Glucose Random 92 mg/dL (60-115); Lactate Dehydrogenase 130 U/L (118-273); Parathyroid Hormone Intact 6.3 pg/mL (8.7-77.1); Potassium 3.6 mmol/L (3.3-5.1); Sodium 138 mmol/L (135-145)
[2024-12-15 06:56] LABS: Vitamin D 25-OH Total 12.9 ng/mL (>30)
[2024-12-15 08:00] VITALS: BP 139/75; PULSE 66; RESP 15; TEMP 37.1; O2SAT 100
[2024-12-15] MEDS: FLUoxetine HCl 20 MG CAPSULE 80 MG PO (08:00)
[2024-12-15] MEDS: polyethylene glycoL 3350 17 GM POWD.PACK PO (08:00)
--- NOTE | 2024-12-15 09:49 | MHC.CM.PN ---
Addendum entered by Rhea Benton RN 12/15/24 14:35: Patient medically cleared for dc home self care Original Note: Patient lives in an apartment alone. Functionally independent. Denies use of DME or services. PCP Castro Manzanares MD No HCP. CM provided education and offered assistance. Patient declined. DP: Goal is home self care. Transport via friend vs [facility] shuttle. CM will continue to follow.
--- NOTE | 2024-12-15 13:37 | P.CONNP_ITS ---
History of Present Illness Reason for Consult Consult date: 12/15/24 Chief Complaint Chief complaint: Symptomatic Hyprcalcemia History of Present Illness Narrative: 34-year-old male with history of anxiety/depression, recently diagnosed iron deficiency anemia & Vitamin D deficiency on Vitamin D and oral iron supplementation presented to the emergency room with a 2 week history of constipation and intermittent nausea/vomiting. He has been started on iron supplementation about 1 month prior to hospitalization. Since the last 2 weeks, the patient reports no bowel movements and several episodes of vomitus. He reports associated, intermittent/crampy abdominal pain in the mid abdomen. He denies any fevers or chills. He denies any diarrhea. He went to urgent Care on 12/11/2024 who recommended going to the emergency room should his symptoms not improved/resolved. Due to the ongoing constipation he presented to the emergency room . Imaging was consistent with constipation. There are some noted para-aortic lymph nodes as well. Furthermore, his chemistries revealed hypercalcemia and a serum creatinine of 1.55. Given these findings with the associated constipation, the patient was admitted to the hospital. Nephrology has been consulted to assist in his clinical care during his current hospital stay Review of Systems Review of Systems Yes all other systems are reviewed and are negative PMFSH Past Medical History Medical History Adjustment disorder with mixed anxiety and depressed mood ADHD (attention deficit hyperactivity disorder) Biceps rupture, distal Weight loss Decreased appetite Blurry vision Polydipsia Scrotal pain Social History Social History Household Members: None Housing: Apartment Housing Other:: 2nd floor Do you presently have visiting nurse or other home services: No Alcohol intake: current Alcohol intake frequency: a few times a week Alcohol type: beer Comment: 1-2 times per week Patient Tobacco Use Status: Former Tobacco user Substance Use Type: Marijuana service: No Meds Allergies Allergy/AdvReac Type Severity Reaction Status Date / Time No Known Allergies Allergy Verified 12/14/24 07:36 Active Medications: Current Medications Acetaminophen (Acetaminophen 325 Mg Tablet) 650 mg PO Q6H PRN PRN Reason: Pain, Mild 1-3,fever,headache Fluoxetine HCl (Fluoxetine Hcl 20 Mg Capsule) 80 mg PO DAILY [facility] Last Admin: 12/15/24 08:00 Dose: 80 mg Sodium Chloride (Ns) 1,000 mls @ 100 mls/hr IVCONT .Q10H [facility] Last Admin: 12/15/24 04:47 Dose: 100 mls/hr Ondansetron HCl (Ondansetron Hcl 4 Mg/2 Ml Vial) 4 mg IVPUSH Q8H PRN PRN Reason: Nausea and Vomiting Polyethylene Glycol (Polyethylene Glycol 3350 17 Gm Powd.Pack) 17 gm PO DAILY [facility] Last Admin: 12/15/24 08:00 Dose: 17 gm Zolpidem Tartrate (Zolpidem Tartrate 5 Mg Tablet) 10 mg PO BEDTIME PRN PRN Reason: Insomnia Home Medications ?Medication ?Instructions ?Recorded ?Confirmed ?Last Taken ?Type zolpidem 10 mg tablet 10 mg PO BEDTIME PRN Sleep 09/01/24 12/14/24 12/13/24 History fluoxetine 40 mg capsule 80 mg PO DAILY 12/14/24 12/14/24 12/13/24 History Physical Exam Vital Signs: Last Vital Signs Temp 98.7 F 12/15/24 08:00 Pulse 66 12/15/24 08:00 Resp 15 12/15/24 08:00 BP 139/75 12/15/24 08:00 Pulse Ox 100 12/15/24 08:00 O2 Del Method Room Air 12/15/24 08:00 BMI result Body Mass Index 28.0 Const General: comfortable and no acute distress Orientation/consciousness: patient oriented x3 HEENT Head: Yes normocephalic Mouth: Normal oral and palatal mucosa present Eyes EOM: EOMs intact bilaterally Neck Neck: Yes supple Resp Auscultation: clear to auscultation bilaterally Cardio Jugular venous distension: no JVD Rate: regular rate GI Palpation (GI): Soft to palpation Auscultation: normal bowel sounds General: Yes no CVA tenderness Back/Spine/Pelvis Back: no CVA tenderness Skin General skin exam: no rashes or lesions noted Neuro General: patient oriented x3 and moves all extremities Extrem General: Yes no pedal edema Results Lab Results 12/14/24 07:49 12/15/24 05:48 Lab results: Chemistry 12/14/24 12/14/24 12/15/24 07:49 13:12 05:48 Sodium 139 138 138 Potassium 3.5 3.6 3.6 Carbon Dioxide 27 26 23 BUN 19 H 15 12 Creatinine 1.52 H 1.32 1.21 Calcium 12.6 H* 12.1 H 11.6 H Hematology 12/14/24 07:49 WBC 6.2 Hgb 11.0 L Plt Count 215 Urine Studies 12/14/24 18:29 Urine Creatinine 51.30 Assessment and Plan (1) MARCIE (acute kidney injury): Status: Acute (2) Hypercalcemia: Status: Acute Plan MARCIE due to volume depletion from hypercalcemia W/U ordered and is in progress; No bisphosfonates/calcitonin given Serum calcium/ creatinine better; Needs lymph node biopsy likely diagnosis- sarcoid but unsure yet No steroids indicated now; Further management is pending data Procedures Date of Service Date of Service: 12/15/24
--- NOTE | 2024-12-15 14:25 | PM.DS ---
DS: Providers Provider Date of Service: 12/15/24 Date of admission: 12/14/24 09:48 Date of discharge: 12/15/24 Primary care physician: Britta Casas APRN Consults: 12/14/24 14:33 Consult to Nephrology Routine Consulting Provider: [facility] Reason for consultation: hyercalcemia DS: Diagnosis Discharge Diagnosis (1) MARCIE (acute kidney injury): Status: Acute (2) Hypercalcemia: Status: Acute DS: Summary Hospital Course Hospital Course: HPI From admission H&P: A 34-year-old male with a past medical history of anxiety/depression, recently diagnosed iron deficiency anemia on oral iron supplementation who presents to the emergency room with a 2 week history of constipation and intermittent nausea/vomiting. The patient states that he has been started on iron supplementation about 1 month prior to hospitalization. Since the last 2 weeks, the patient reports no bowel movements and several episodes of vomitus. He reports associated, intermittent/crampy abdominal pain in the mid abdomen. He denies any fevers or chills. He denies any diarrhea. The patient states that he went to urgent Care on 12/11/2024 who recommended going to the emergency room should his symptoms not improved/resolved. Due to the ongoing constipation he presented to the emergency room In the ED, the patient was found to have imaging consistent with constipation. There are some noted para-aortic lymph nodes as well. Furthermore, his chemistries revealed hypercalcemia and a serum creatinine of 1.55. Given these findings with the associated constipation, the patient will be admitted to the hospital for further care. Hospital Course: She was started on intravenous fluids and had serial monitoring of his serum calcium. He had improvement with fluids but calcium remained high and hence Nephrology was consulted. Workup for hypercalcemia was ordered and is pending at the time of discharge. The patient also underwent CT imaging to evaluate for lymphadenopathy which was positive. A referral has been made to Interventional Radiology for lymph node biopsy. The patient has been advised to discontinue any vitamin-D supplementation. In regards to his constipation, he was treated with MiraLax which will be prescribed at the time of discharge. For the time being he is told to hold iron replacement until further discussion with his outpatient providers. He will also follow up with Nephrology in 1 week's time. Serum creatinine which was 1.52 at the time of admission has trended to 1.21 at the time of discharge. Serum calcium has improved from 12.6-11.6. Final discharge diagnoses 1. Symptomatic hypercalcemia 2. Acute kidney injury 3. Lymphadenopathy 4. Constipation Time Attestation Discharge Coordination Time (in mins): 45 Quality: Safe Use of Opioids Does Pt have an Active Cancer Diagnosis on the Problem List?: No Quality: Stroke Does the patient have a stroke diagnosis?: No Physical Exam Vital Signs: Vital Signs: Last Vital Signs Temp 98.7 F 12/15/24 08:00 Pulse 66 12/15/24 08:00 Resp 15 12/15/24 08:00 BP 139/75 12/15/24 08:00 Pulse Ox 100 12/15/24 08:00 O2 Del Method Room Air 12/15/24 08:00 BMI result Body Mass Index 28.0 Const: Other: General - no acute distress, appears comfortable Cardiovascular - regular rate and rhythm, S1-S2 Lungs - normal respiratory effort, clear to auscultation bilaterally, no wheezing Abdomen - soft, non-tender, no rebound or guarding Extremities - no edema bilaterally Neuro - awake and alert, no focal deficits Lymph - unable to palpate axillary lymph node DS: Data Data Completed and Pending Labs on day of discharge: Laboratory Results - last 24 hr 12/14/24 12/15/24 12/15/24 18:29 05:48 07:41 Hold Purple Top SEE NOTE Sodium 138 Potassium 3.6 Chloride 108 Carbon Dioxide 23 Anion Gap 11 L BUN 12 Creatinine 1.21 Estim Creat Clear Calc 94.3 Estimated GFR > 60 Random Glucose 92 Calcium 11.6 H Lactate Dehydrogenase 130 25-OH Vitamin D Total 12.9 L PTH Intact 6.3 L U Random Total Protein < 7 Urine Creatinine 51.30 Protein/Creatinin Ratio TNP Imaging CT scan - chest: Radiologist's impression: ITS Impressions Abdomen/Pelvis CT 12/14/24 07:56 IMPRESSION: 1. Splenomegaly. 2. Prominent para-aortic and mesenteric lymph nodes, more notable for number than size. 3. Large amount of stool throughout the colon. Electronically signed by: Rony Zee MD 12/14/2024 08:50 AM EDT Chest X-Ray 12/14/24 15:45 IMPRESSION: The lungs are clear. There is prominence of the mediastinal stripes and hilar regions which may be due to AP portable technique. If there is clinical concern for mediastinal lymphadenopathy, chest CT is advised. Electronically signed by: Rony Zee MD 12/15/2024 07:12 AM EDT RP Chest CT 12/15/24 09:34 IMPRESSION: 1. Mediastinal lymphadenopathy as described. 2. Probable bilateral hilar lymphadenopathy. However, evaluation is limited by lack of intravenous contrast material. 3. Prominent bilateral axillary lymph nodes. 4. Splenomegaly is seen on prior abdominal CT. Electronically signed by: Rony Zee MD 12/15/2024 10:40 AM EDT RP Discharge Plan Discharge Anticipated Discharge Date/Time: 12/15/24 14:24 Patient Disposition: Home, Self-Care Discharge Diagnosis: Hypercalcemia Referrals: Britta Casas APRN [Primary Care Provider] - 1 Week Britton Bonds MD [Physician] - 1 Week Discharge Medications: Continued fluoxetine 40 mg capsule 80 mg PO DAILY zolpidem 10 mg tablet 10 mg PO BEDTIME PRN (Reason: Sleep) Discharge Orders: Discharge Order (Routine); Ordered 12/15/24 Ordered By: Carlos Mcknight Diet: Advance to usual diet Activity on Discharge: As tolerated Stand Alone Forms: Patient Portal Discharge page, Work/School Release Print Language: Andorran Other Ambulatory Orders: US biopsy lymph node (Routine) Timeframe: 1 Week Facility: [facility] - Location: Ultrasound Ordered By: Carlos Mcknight Care Plan Goals: To follow up with Kidney doctors for further evaluation of high calcium To get biopsy of your lymph node -- the IR department will contact you Health Concerns: High calcium Constipation Plan of Treatment: Follow up with kidney doctors, follow up for biopsy Stop taking vitamin D Hold iron pills until you discuss with your primary doctors Take stool softeners / fiber supplements Assessment: see discharge summary
[2024-12-15 14:55] VITALS: BP 126/63; PULSE 82; RESP 18; TEMP 36.8; O2SAT 100
[2024-12-16 14:49] LABS: IgA 585 mg/dL (47-310); IgG 1577 mg/dL (600-1640); IgM 128 mg/dL (50-300)
[2024-12-16 15:13] LABS: Calcium, Ionized 6.9 mg/dL (4.7-5.5)
[2024-12-21 13:12] LABS: VITAMIN D (1,25 OH) D3 <8 pg/mL; Vit D (1,25-Dihydroxy) Total 87 pg/mL (18-72); Vitamin D (1,25 OH) D2 87 pg/mL
== END 2024-12-15 15:04 | disposition home or self-care (01) | DRG 425 ==
LOC: HO.ED 09:09 → HO.EDOVER 10:00 → HO.S3 12:12
PROVIDERS: Internal Medicine Nephrology; Admitting Provider Family Medicine; Emergency Provider Emergency Medicine; PCP Internal Medicine; Visit Provider Family Medicine
DX: E83.52 Hypercalcemia (principal); N17.9 Acute kidney failure, unspecified; K59.00 Constipation, unspecified; E86.0 Dehydration; D50.9 Iron deficiency anemia, unspecified; Z87.891 Personal history of nicotine dependence; Z79.899 Other long term (current) drug therapy
CPT/HCPCS: 36415; 71045; 71250; 74177; 80048; 80053; 82306; 82330; 82570; 82652; 82784; 83519; 83615; 83690; 83735; 83970; 84156; 85025; 86334; 86335; 93005; 99285; Q9967

== ENCOUNTER → 2024-12-14 07:56 | Outpatient (BNV) | payer BC, SELFPAY | PROVIDERS: Emergency Provider Emergency Medicine; PCP Nurse Practitioner Family; Visit Provider Radiology Diagnostic Radiology | DX: R16.1 Splenomegaly, not elsewhere classified (principal) | CPT/HCPCS: 74177 ==

== ENCOUNTER → 2024-12-14 08:20 | Outpatient (BNV) | payer BC, SELFPAY | PROVIDERS: Admitting Provider Family Medicine; Emergency Provider Emergency Medicine; PCP Nurse Practitioner Family; Visit Provider Internal Medicine Cardiovascular Disease | DX: E83.52 Hypercalcemia (principal) | CPT/HCPCS: 93010 ==

== ENCOUNTER 2024-12-14 09:48 | Outpatient (BNV) | payer BC, SELFPAY | END 2024-12-15 09:34 | PROVIDERS: Admitting Provider Family Medicine; Emergency Provider Emergency Medicine; PCP Nurse Practitioner Family; Visit Provider Radiology Diagnostic Radiology | DX: R59.1 Generalized enlarged lymph nodes (principal); R16.1 Splenomegaly, not elsewhere classified | CPT/HCPCS: 71250 ==

== ENCOUNTER → 2024-12-14 09:48 | Outpatient (BNV) | payer BC, SELFPAY | PROVIDERS: Admitting Provider Family Medicine; Emergency Provider Emergency Medicine; PCP Nurse Practitioner Family; Visit Provider Internal Medicine Nephrology | DX: N17.9 Acute kidney failure, unspecified (principal); E83.52 Hypercalcemia | CPT/HCPCS: 99233 ==

== ENCOUNTER → 2024-12-14 09:48 | Outpatient (BNV) | payer BC, SELFPAY | PROVIDERS: Admitting Provider Family Medicine; Emergency Provider Emergency Medicine; PCP Nurse Practitioner Family; Visit Provider Family Medicine | DX: N17.9 Acute kidney failure, unspecified (principal); E83.52 Hypercalcemia | CPT/HCPCS: 99239 ==

== ENCOUNTER 2024-12-17 20:38 | Inpatient (IN) | payer BC, SELFPAY ==
--- NOTE | ~2024-12-17 | US_ITS ---
Examination: Ultrasound-guided right axillary lymph node biopsy. CLINICAL INDICATION: Abnormal mediastinal and bilateral axillary lymphadenopathy. COMPARISON: CT chest without IV contrast 12/15/2024. TECHNIQUE: Following explaining ultrasound-guided right axillary lymph node biopsy procedure, benefits and risk, a written consent was obtained. Patient was placed supine on ultrasound stretcher and preliminary ultrasound imaging was obtained through the right axilla. Optimal site was selected and marked on the skin. The marked area was cleaned and draped in usual sterile manner. 1% lidocaine was injected. Under sterile ultrasound guidance if 6 passes biopsy of right axillary largest lymph node was performed. Samples are collected was sent in [employer] and for flow cytometry. Complete hemostasis achieved appendicitis sterile Band-Aid applied postprocedure. Patient tolerated procedure extremely well. Findings/ US/US guided fine needle asp impression:. Ultrasound imaging there are multiple right axillary lymph nodes largest right inguinal lymph node is approximately 2.8 x 1.3 cm. Successful ultrasound-guided right axillary lymph node fine needle aspiration biopsy performed. Electronically signed by: Riky Riley MD 12/18/2024 04:40 PM EDT
--- NOTE | ~2024-12-17 | CT_ITS ---
PROCEDURE: CT GUIDED BIOPSY, KIDNEY CLINICAL INFORMATION: Acute kidney injury. Hyperkalemia COMPARISON: None available. TECHNIQUE: Following explaining CT fluoroscopy guided kidney biopsy procedure, benefits and risk, a written consent was obtained. Patient was placed prone and preliminary CT imaging was obtained. An axial slice was selected along the left posterior lateral abdomen and markers placed. An optimal marker was selected and marked on the skin. The marked site was cleaned and draped with 2% chlorhexidine solution. 1% lidocaine was injected at puncture site. A 20-gauge guide needle was advanced through a small skin incision to the posterior lateral border of lower pole left kidney. Coaxially a 20-gauge needle was advanced and a 3 pass core biopsy was performed. Tissue was collected on wet gauze and placed in small bottle and sent to lab. Repeat imaging was performed. Postprocedure there is no hemorrhage seen. Simple dressing applied post procedure. Conscious sedation was utilized during exam and patient monitored by IR nurse and physician for [address] examination was performed using dose optimization techniques as appropriate, variously including the following: *Automated exposure control *Adjustment of mA and/or kV according to patient size (this includes techniques or standardized protocols for targeted exams where dose is matched to indication/reason for exam; i.e. extremities or head) *Use of iterative reconstruction technique FINDINGS: On previous CT imaging the kidneys are symmetrical in size, shape and position. No radiopaque calculi. No perinephric collection seen. Successful CT fluoroscopy guided left kidney lower pole core biopsy performed. Postprocedure no bleeding seen. CT/CT biopsy renal LT IMPRESSION: Successful CT fluoroscopy guided left kidney core biopsy performed. DLP: 625 mGy/cm. Electronically signed by: Riky Riley MD 12/22/2024 07:49 AM EDT
[2024-12-17 20:45] VITALS: BP 109/67; PULSE 117; RESP 16; TEMP 36.5; O2SAT 98; BMI 28.1
[2024-12-17 21:16] LABS: Basophils Absolute Auto 0.1 X10*3/uL (0.0-0.2); Eosinophils Absolute Auto 0.2 X10*3/uL (0.0-0.4); Hematocrit 33.4 % (42.0-52.0); Hemoglobin 11.1 g/dl (14.0-18.0); Imm Gran Abs Auto 0.02 X10*3/uL (0.00-0.03); Imm Gran Pct Auto 0.4 % (0.0-0.4); Lymphocytes Absolute Auto 0.8 X10*3/uL (1.2-4.9); Lymphocytes Percent Auto 15.6 % (20-40); MANUAL DIFF FLAG NO; Mean Corpuscular HGB Conc 33.2 g/dl (31.0-36.0); Mean Corpuscular Hemoglobin 24.9 pg (27.0-33.0); Mean Corpuscular Volume 74.9 fL (80.0-98.0); Mean Platelet Volume 9.6 fL (9.4-12.4); Monocytes Absolute Auto 0.7 X10*3/uL (0.1-1.2); Monocytes Percent Auto 14.8 % (2-11); Neutrophils Percent Auto 63.2 % (45-73); Platelet Count 232 X10*3/uL (160-400); Red Blood Count 4.46 X10*6/uL (4.60-5.80); White Blood Count 4.8 X10*3/uL (4.8-10.8)
[2024-12-17 21:31] LABS: Calcium 13.8 mg/dL (8.4-10.2)
[2024-12-17 21:32] LABS: Alanine Aminotransferase 28 U/L (0-40); Albumin Level 3.8 g/dL (3.5-5.0); Alkaline Phosphatase 105 U/L (39-117); Anion Gap 13 (12-20); Aspartate Amino Transferase 21 U/L (5-37); Bilirubin Total 0.4 mg/dL (0.0-1.0); Blood Urea Nitrogen 17 mg/dL (9-16); Calcium 13.6 mg/dL (8.4-10.2); Carbon Dioxide 27 mmol/L (22-29); Chloride 103 mmol/L (96-108); Estimated Glomerular Filt Rate 46; Glucose Random 121 mg/dL (60-115); Potassium 3.7 mmol/L (3.3-5.1); Sodium 139 mmol/L (135-145); Total Protein 7.9 g/dL (6.5-8.0)
[2024-12-18] VITALS (7 sets, daily range): BP systolic 101–164; BP diastolic 49–84; PULSE 64–87; RESP 16–18; TEMP 36.1–37.4; O2SAT 98–100
[2024-12-18] MEDS: 0.9 % Sodium Chloride 2,000 ML 999 ML IVCONT (01:51)
--- NOTE | 2024-12-18 02:31 | ED.RECABL ---
HPI - Recheck/Abnormal Lab/Rx General Chief Complaint: Recheck/Abnormal Lab/Rx Stated Complaint: constipation Time Seen by Provider: 12/18/24 01:34 Source: patient Mode of arrival: ambulatory Limitations: no limitations History of Present Illness ED Provider: Dr. Enedina Lepe HPI narrative: Patient comes to the emergency room complaining of hypercalcemia. Patient states that he was told by his PCP that his calcium is elevated. Patient states that he has been having constipation and abdominal cramping for almost 3 weeks . Three days ago, patient was discharged from this hospital for hypercalcemia. Nephrology was consulted . Patient received IV fluids. Also, it was noted on a CT scan that patient has mediastinal lymphadenopathy. Patient has a biopsy pending. Patient denies any chest pain or shortness of breath. Patient complaining of ongoing constipation and abdominal cramping. Related Data Home Medications ?Medication ?Instructions ?Recorded ?Confirmed zolpidem 10 mg tablet 10 mg PO BEDTIME PRN Sleep 09/01/24 12/14/24 fluoxetine 40 mg capsule 80 mg PO DAILY 12/14/24 12/14/24 Allergies Allergy/AdvReac Type Severity Reaction Status Date / Time No Known Allergies Allergy Verified 12/17/24 20:47 Review of Systems Review of Systems: Constitutional : No Weight loss, No Fever, No Chills, No Night Sweats, No Fatigue, No Malaise ENT/Mouth : No Hearing loss, No Ear Pain, No Nasal Congestion, No Sinus Pain, No Hoarseness, No sore throat, No Rhinorrhea, No Swallowing Difficulty Eyes: No Eye Pain, No Swelling, No Redness, No Foreign Body, No Discharge, No Vision Changes Cardiovascular : No Chest Pain, No SOB, No Dyspnea on Exertion, No Orthopnea, No Edema, No Palpitations Respiratory : No Cough, No Sputum, No Wheezing, No Smoke Exposure, No Dyspnea Gastrointestinal : No Nausea, No Vomiting, No Diarrhea, No Constipation, No abdominal Pain, No Hematochezia, No Melena Genitourinary : no irregular bleeding, No Dysuria, No Urinary Frequency, No Hematuria, No Urinary Incontinence, No Urgency, No Flank Pain, No Urinary Flow Changes, No Hesitancy Musculoskeletal : No joint pain, No Myalgias, No Joint Swelling Skin : No Skin Lesions, No rash Neuro : No Weakness, No Numbness, No Paresthesias, No Loss of Consciousness, No Dizziness, No Headache Psych : No Anxiety/Panic, No Depression, No SI/HI/AH/VH, No Social Issues, Heme/Lymph: No Bruising, No Bleeding,No Lymphadenopathy Endocrine : No Polyuria, No Polydipsia, No Temperature Intolerance [facility] Past Medical History Medical History Adjustment disorder with mixed anxiety and depressed mood ADHD (attention deficit hyperactivity disorder) Biceps rupture, distal Weight loss Decreased appetite Blurry vision Polydipsia Scrotal pain Social History Social History Household Members: None Housing: Apartment Housing Other:: 2nd floor Do you presently have visiting nurse or other home services: No Alcohol intake: current Alcohol intake frequency: holidays/special occasions only Alcohol type: beer Comment: 1-2 times per week Patient Tobacco Use Status: Former Tobacco user Substance Use Type: Marijuana service: No Physical Exam Vital Signs: Vital Signs: Last Vital Signs Temp 98.1 F 12/18/24 01:57 Pulse 81 12/18/24 01:57 Resp 17 12/18/24 01:57 BP 101/49 L 12/18/24 01:57 Pulse Ox 98 12/18/24 01:57 O2 Del Method Room Air 12/18/24 01:57 BMI result Body Mass Index 28.1 Const: Other: Appearance: Alert. Oriented X3. No acute distress. Eyes: Pupils equal, round and reactive to light. ENT: Pharynx normal. Neck: Normal inspection. Neck supple. No lymph nodes noted. No crepitus CVS: Normal heart rate and rhythm. Pulses normal. Normal S1 and S2 Respiratory: No respiratory distress. Breath sounds normal. No Wheezing. No rales Abdomen: Soft and nontender. No rigidity. No distention. Skin: Skin warm and dry. Normal skin color. Normal skin turgor. Extremities: No lower extremity edema. No Lacerations. No Rash Neuro: Oriented X 3. No motor deficit. No sensory deficit. Moving all extremities. No slurred speech. CN 2 through 12 grossly intact Psych: calm, cooperative, normal affect Medications Administered Generic Name Dose Route Start Last Admin Trade Name Freq PRN Reason Stop Dose Admin Sodium Chloride 2,000 mls @ 999 mls/hr 12/18/24 01:41 12/18/24 01:51 Ns IVCONT 12/18/24 03:41 999 mls/hr .Q2H1M ONE Administration Medical Decision Making Medical Decision Making [facility] Narrative: my interpretation of labs; hematology at baseline. Chemistry shows MARCIE, Cr 1.78 and Calcium of 13.8 I discussed the pt with Dr. Bonds from nephrology, we'll start zolendronic acid 4mg IV . Pt already has 2L NS running, pt to be admitted I discussed the above mentioned with the pt, he agrees with the plan I discussed the pt with Dr. Foy, pt being admitted Differential Diagnosis Differential Diagnoses: The differential diagnosis associated with the presentation includes (hypercalcemia, malignancy, sarcoidosis) Admission/Observation Consideration of admission/observation: Escalation of care including admission/observation considered Consult Healthcare Provider Management of the patient was discussed with: Hospitalist and Sap Ppm Consultant Lab Data MDM Lab Attestation statement: I reviewed the patient's lab results. 12/17/24 21:11 12/17/24 21:11 Labs: Lab Results 12/17/24 12/17/24 Range/Units 21:11 21:11 WBC 4.8 (4.8-10.8) X10*3/uL RBC 4.46 L (4.60-5.80) X10*6/uL Hgb 11.1 L (14.0-18.0) g/dl Hct 33.4 L (42.0-52.0) % MCV 74.9 L (80.0-98.0) fL MCH 24.9 L (27.0-33.0) pg MCHC 33.2 (31.0-36.0) g/dl RDW 17.0 H (11.0-16.0) % Plt Count 232 (160-400) X10*3/uL MPV 9.6 (9.4-12.4) fL Immature Gran % (Auto) 0.4 (0.0-0.4) % Neut % (Auto) 63.2 (45-73) % Lymph % (Auto) 15.6 L (20-40) % Mitchell % (Auto) 14.8 H (2-11) % Eos % (Auto) 5.0 H (0-4) % Baso % (Auto) 1.0 (0-2) % Lymph # (Auto) 0.8 L (1.2-4.9) X10*3/uL Mitchell # (Auto) 0.7 (0.1-1.2) X10*3/uL Eos # (Auto) 0.2 (0.0-0.4) X10*3/uL Baso # (Auto) 0.1 (0.0-0.2) X10*3/uL Abs Immat Gran (auto) 0.02 (0.00-0.03) X10*3/uL Absolute Neuts (auto) 3.0 (2.0-8.3) x10*3/uL Absolute Nucleated RBC 0.000 (0.0-0.012) X10*3/uL Nucleated RBC % (auto) 0.0 (0.0-0.2) /100WBC Sodium 139 (135-145) mmol/L Potassium 3.7 (3.3-5.1) mmol/L Chloride 103 (96-108) mmol/L Carbon Dioxide 27 (22-29) mmol/L Anion Gap 13 (12-20) BUN 17 H (9-16) mg/dL Creatinine 1.73 H (0.5-1.4) mg/dL Estim Creat Clear Calc 66.0 Estimated GFR 46 Random Glucose 121 H (60-115) mg/dL Calcium 13.6 H* D 13.8 H* (8.4-10.2) mg/dL Total Bilirubin 0.4 (0.0-1.0) mg/dL AST 21 (5-37) U/L ALT 28 (0-40) U/L Alkaline Phosphatase 105 (39-117) U/L Total Protein 7.9 (6.5-8.0) g/dL Albumin 3.8 (3.5-5.0) g/dL Critical Care Time Critical Care Time Critical Care Time: Yes Total Critical Care Time: 60 Attestation: I have personally provided critical care time. Time includes review of lab data, radiology results, discussion with consultants, and monitoring for potential decompensation. Intervention performed as documented. Discharge Plan Discharge Clinical Impression: Hypercalcemia, MARCIE (acute kidney injury) Patient Disposition: Admitted As Inpatient Prescriptions: No Action fluoxetine 40 mg capsule 80 mg PO DAILY zolpidem 10 mg tablet 10 mg PO BEDTIME PRN (Reason: Sleep) Print Language: Albanian
--- OUTSIDE RECORDS SUMMARY | 2024-12-18 02:46 | XMS_ITS | Encounter Summary ---
Author Organization [facility] Address [address] [place] [address] Care Team Providers Care Manager Trust Name Role Phone Castro Manzanares MD Primary Care Provider [phone] Encounter Details Date Type Department Care Team (Late Contact Info) Description 12/17/2024 Telephone Adult [address] [phone] Trino Hernandez PA [address] [place], [place] [phone] Social History Tobacco Use Types Packs/Day Years Used Date Smoking Tobacco: Light Smoker Smokeless Tobacco: Never Alcohol Use Standard Drinks/Week Comments Yes 0 (1 standard drink = 0.6 oz pur e alcohol) Sex and Gender Information Value Date Recorded Sex Assigned at Not on file Legal Sex Male 8:42 PM EST Gender Identity Not on file Sexual Orientation Not on file documented as of this encounter Progress Notes * YEISON Craft - 12/17/2024 8:13 PM EDT on call pharmacy technician received call around 6pm patient has hypercalcemia of 14.7. with correction its very high. Ionized calcium not available yet. I think ER would be the best course of action, [facility] documented in this encounter Plan of Treatment Upcoming Encounters Date Type Department Care Team (Late Contact Info) Description 12/23/2024 9:45 AM EDT Office Visit Adult Medicine [id number] [place], [place] [phone] Castro Manzanares MD [address] [place] [id number] documented as of this encounter Visit Diagnoses Not on filedocumented in this encounter Care Teams Manager Trust Relationship Specialty Start Date End Date Castro Manzanares MD [address] [place] [address] PCP - General Internal Medicine 06/25/22 documented as of this encounter
--- OUTSIDE RECORDS SUMMARY | 2024-12-18 02:46 | XMS_ITS ---
Author Organization [address] Address [address] [place] [phone] Phone Care Team Providers Care Assistant Hairstylist Name Role Phone Castro Mnazanares MD Primary Care Provider [phone] Transitional Care Management Status:Ongoing (Active) Start date:12/15/2024 Enrollment date:12/15/2024 Enrollment reason:Identified using hospital discharge data Case Team Name Relationship Phone Michelle Moulton LPN Care Manager(Responsible Staff) Continued Care and Services Coordination
--- OUTSIDE RECORDS SUMMARY | 2024-12-18 02:46 | XMS_ITS | Encounter Summary ---
Author Organization [facility] Address [address] [place] [address] Care Team Providers Care Mortgage Clerk Name Role Phone Castro Manzanares MD Primary Care Provider [phone] Reason for Referral * Imaging (Routine) - Authorized Specialty Diagnoses / Procedures Referred By Janell merino Referred To Contact Radiology Diagnoses Mediastinal lymphadenopathy Procedures IR Bx Lung/Mediastinum Perc Ndl Core w Image Guide Castro Manzanares MD [address] [place] [address] Phone: tel: fax: CT Scan - [address] Phone: tel: fax: Referral ID Status Reason Start Date Expiration Date V isits Requested Visits Authorized [id number] Authorized 12/17/2024 12/17/2025 1 1 * Consultation (Urgent) - Authorized Specialty Diagnoses / Procedures Referred By Janell merino Referred To Contact Vascular Surgery Diagnoses Mesenteric lymphadenopathy Castro Manzanares MD [address] [place] [address] Phone: tel: fax: Malissa Vu MD [address] [address] Phone: tel: fax: Referral ID Status Reason Start Date Expiration Date Visits Requested Visits Authorized [id number] Authorized Specialty Services Required 12/17/2024 12/17/2025 1 1 * Consultation (Urgent) - Authorized Specialty Diagnoses / Procedures Referred By Contfeliciano t Referred To Contact Gastroenterology Diagnoses Splenomegaly Castro Manzanares MD [address] [place] [address] Phone: tel: fax: Evelyn Bhatia MD [address] [place] [address] Phone: tel: fax: Referral ID Status Reason Start Date Expiration Date Visits Requested Visits Authorized [id number] Authorized Specialty Services Required 12/17/2024 12/17/2025 1 1 * Consultation (Urgent) - Pending Review Specialty Diagnoses / Procedures Referred By Janell t Referred To Contact Thoracic Surgery Diagnoses Mediastinal lymphadenopathy Castro Manzanares MD [address] [place], [place] [address] [place] [address] Phone: tel: fax: Referral ID Status Reason Start Date Expiration Date Visits Requested Visits Authorized [id number] Pending Review Specialty Services Required 12/17/2024 12/17/2025 1 1 * Consultation (Urgent) - Pending Review Specialty Diagnoses / Procedures [facility] Referred To Contact Hematology Diagnoses Anemia, unspecified type Castro Manzanares MD [address] [place] [address] Phone: tel: fax: Referral ID Status Reason Start Date Expiration Date Visits Requested Visits Authorized [id number] Pending Review Specialty Services Required 12/17/2024 12/17/2025 1 1 * Consultation (Urgent) - Authorized Specialty Diagnoses / Procedures Referred By Janell merino Referred To Contact Nephrology Diagnoses Acute kidney injury ([facility] V24) Castro Manzanares MD [address] [place] [address] Phone: tel: fax: Partha Maharaj MD [address] [place] [address] Phone: tel: fax: Referral ID Status Reason Start Date Expiration Date Visits Requested Visits Authorized [id number] Authorized Specialty Services Required 12/17/2024 12/17/2025 12 12 Reason for Visit * Reason Comments [place] [facility] [place] Encounter Details Date Type Department Care Team (Late st Contact Info) Description 12/17/2024 1:00 PM EDT Office Visit Adult Medicine [address] [phone] Castro Manzanares MD [address] [place] [address] Splenomegaly (Primary Dx); Vitamin D deficiency disease; Anemia, unspecified type; Acute kidney injury (CMS/HCC V24); Mediastinal lymphadenopathy; Hypercalcemia; History of non-nicotine vaping; History of cigar smoking; Mesenteric lymphadenopathy; Arthralgia, unspecified joint Social History Tobacco Use Types Packs/Day Years [...] on file documented as of this encounter Last Filed Vital Signs Vital Sign Reading Time Taken Comments Blood Pressure 98/56 12/17/2024 1:01 PM EDT Pulse 106 12/17/2024 1:01 PM EDT Temperature 36.5 ??C (97.7 ??F) 12/17/2024 1:01 PM ED T Respiratory Rate - - Oxygen Saturation - - Inhaled Oxygen Concentration - - Weight 83.9 kg (185 lb) 12/17/2024 1:01 PM EDT Height 175.3 cm (5' 9 ) 12/17/2024 1:01 PM EDT Body Mass Index 27.32 12/17/2024 1:01 PM EDT documented in this encounter Patient Instructions * Attachments The following attachments cannot be sent through Care Everywhere. * Constipation (Bruneian) * Fiber Foods: General Info (Bruneian) * Iron-Rich Diet (Bruneian) * High-Fiber Diet (Bruneian) documented in this encounter Ordered Prescriptions Prescription Sig Dispense Quantity Refills Last Filled Start Date End Date psyllium (METAMUCIL) 0.52 gram capsule Take 1 capsule (520 mg total) by mouth 1 (one) time each day. 30 capsule 11 12/17/2024 documented in this encounter Progress Notes * Castro Manzanares MD - 12/17/2024 1:00 PM EDT CHIEF COMPLAINT: Follow-up ([facility] [place] IDENTIFIER: Hubert Sparrow is a 34 y.o. old male. HPI: History of Present Illness The patient is a 34-year-old male who presents for evaluation of constipation, high calcium level, acute kidney injury, lymphadenopathy, anxiety and depression, iron deficiency, vitamin D deficiency,and arthritis. He was recently admitted to [facility] from 12/14/2024 to 12/16/2024 due to severe constipation,which had persisted for approximately 1.5 weeks prior to his hospital visit. He has not been passing stool currently. He reports no presence of blood in his urine or stool. He maintains a diet rich in fiber, including spinach salads. He has been prescribed MiraLAX for his constipation. During his hospital stay, he underwent a chest x-ray and CT scan of the abdomen and pelvis, which revealed enlarged spleen and prominent para-aortic and mesenteric lymph nodes. He also had a large amount of stool. He reports no history of trauma to the left side of his abdomen, infectious mononucleosis, chronic conditions, malaria, or any other type of infection. He has never worked in law enforcement or healthcare and has not been hospitalized for a prolonged period in the past. He has traveled to [place] and [place] but has not traveled outside the . He has an upcoming appointment with a pump tester. He was admitted for acute kidney injury. He has been experiencing intermittent nausea and vomiting, which have recently subsided. He has been experiencing occasional lightheadedness. He has been maintaining hydration by consuming 8 to 12 glasses of water daily. He has a history of anxiety and depression, which are currently under control with fluoxetine 40 mgdaily. He has a long-standing history of low iron levels since childhood, but the cause remains unclear. He has not been taking his iron supplements as advised by his doctor during his hospital stay. He hasnot seen a film masker in the last 6 months. He has a history of vitamin D deficiency and is currently on vitamin D supplements. He has a history of arthritis affecting his wrists and shoulders. SOCIAL HISTORY He used to smoke non-nicotine vapes and cigarettes for about 5 years. He reports no current smoking. He reports no alcohol use. FAMILY HISTORY He does not know his family history as he is a foster child. MEDICATIONS Current: Fluoxetine, vitamin D supplement. Discontinued: Iron supplement. ROS: The remainder of review of systems is noncontributory. PAST MEDICAL HISTORY: Patient Active Problem List Diagnosis Date Noted Polydipsia Blurry vision Decreased appetite Weight loss Low blood pressure reading Biceps rupture, distal, right, sequela 01/29/2023 ADHD (attention deficit hyperactivity disorder) 09/07/2019 Adjustment disorder with mixed anxiety and depressed mood 04/21/2019 SOCIAL HISTORY: Social History Tobacco Use Smoking status: Light Smoker Smokeless tobacco: Never Substance Use Topics Alcohol use: Yes FAMILY HISTORY: Family Status Relation Name Status Mother Alive Father Sister Alive Brother Alive Brother Alive Brother Alive Brother Alive Brother Alive Brother Alive Sister Alive Sister Alive Sister Alive Sister Alive Sister Alive Sister Alive No partnership data on file Family History Problem Relation Name Age of Onset No Known Problems Mother Other (Other: organ failure) Father No Known Problems Sister No Known Problems Brother No Known Problems Brother No Known Problems Brother No Known Problems Brother No Known Problems Brother No Known Problems Brother No Known Problems Sister No Known Problems Sister No Known Problems Sister No Known Problems Sister No Known Problems Sister No Known Problems Sister ACTIVE MEDICATIONS: Outpatient Medications Marked as Taking for the 12/17/24 encounter (Office Visit) with Castro Manzanares MD Medication Sig Dispense Refill ergocalciferol (VITAMIN D-2) 1,250 mcg (50,000 unit) capsule Take 1 capsule (50,000 Units total) bymouth 1 (one) time per week. 12 capsule 0 ferrous sulfate 325 mg (65 mg iron) EC tablet Take 1 tablet (325 mg total) by mouth 2 (two) times aday. Do not crush, chew, or split. 90 each 1 FLUoxetine (PROzac) 20 mg capsule Take 4 capsules (80 mg total) by mouth 1 (one) time each day. Prescribe by Psychiatrist. senna-docusate (PERICOLACE) 8.6-50 mg per tablet Take 1 tablet by mouth 1 (one) time each day. 30 each 11 zolpidem (AMBIEN) 10 mg tablet Take 1 tablet (10 mg total) by mouth at bedtime as needed for sleep.Prescribe by Psych ALLERGIES: Patient has no known allergies. PHYSICAL EXAM: Blood pressure 98/56, pulse 106, temperature 36.5 ??C (97.7 ??F), height 1.753 m (69 ), weight 83.9kg (185 lb). Body mass index is 27.32 kg/m??. BMI is greater than 25.0 (above the normal range) - see Plan Physical Exam General Appearance: Normal. Vital signs: Blood pressure is low normal today. HEENT: Within normal limits. Respiratory: Lungs were auscultated. Skin: Warm and dry, no rash. Neurological: Normal. LABS: Results Laboratory Studies Calcium level at discharge was 11.6. Parathyroid hormone was low. Mild anemia was noted on recent blood work. Imaging Chest x-ray was clear but showed prominent mediastinal and hilar region. CT chest showed lymphadenopathy in the mediastinum and under the arm. CT scan of abdomen and pelvis showed enlarged spleen andprominent lymph nodes, para-aortic and mesenteric. IMPRESSION: 1. Splenomegaly 2. Vitamin D deficiency disease 3. Anemia, unspecified type 4. Acute kidney injury (CMS/HCC V24) 5. Mediastinal lymphadenopathy PLAN: Orders Placed This Encounter Procedures Ambulatory referral to Nephrology Ambulatory referral to Hematology Ambulatory referral to Thoracic Surgery Ambulatory referral to Gastroenterology Assessment & Plan 1. Constipation. He was admitted to the hospital from 12/14/2024 to 12/16/2024 for constipation and was discharged yesterday. He has not had a bowel movement in the last two weeks and reports intermittent nausea and vomiting. He was given MiraLAX in the hospital. Metamucil capsules have been prescribed. If dietary fiber and Metamucil do not alleviate symptoms, MiraLAX can be used as needed. 2. Hypercalcemia. His calcium level was elevated at 11.6 upon discharge. A nephrology referral will be initiated for further evaluation of hypercalcemia. Parathyroid hormone- related protein will be checked to rule outunderlying cancer. Adequate hydration is advised to prevent low blood pressure. 3. Acute Kidney Injury. He was diagnosed with acute kidney injury during his hospital stay. A nephrology referral will be initiated for further evaluation. Kidney function will be rechecked. 4. Lymphadenopathy. He has prominent lymph nodes in the mediastinal, hilar, para-aortic, and mesenteric regions. A referral to interventional radiology for a lymph node biopsy will be made. A vascular team referral willalso be initiated due to the prominent lymph node around the aorta. Prominent mediastinal lymph node, referral placed to pulmonology 5. Anxiety and Depression. He is currently on fluoxetine 40 mg daily for anxiety and depression, which are mostly under control. 6. Iron Deficiency. He has a history of iron deficiency and was prescribed iron supplements but has not been taking them since the hospital advised against it. He will continue his iron supplements. 7. Vitamin D Deficiency. He has a history of vitamin D deficiency and was advised to continue his vitamin D supplements. 8. Arthritis. He reports a history of arthritis in his wrists and shoulders. An arthritis panel will be conductedto check for rheumatoid arthritis, Lyme disease, and gout. ADDITIONAL ORDERS: AMB REFERRAL TO NEPHROLOGY AMB REFERRAL TO HEMATOLOGY AMB REFERRAL TO THORACIC SURGERY AMB REFERRAL TO GASTROENTEROLOGY Castro Manzanares MD on 12/17/2024 at 1:27 PM EDT I have obtained verbal consent from Hubert Sparrow prior to the recording. I have advised Hubert Sparrow that he may refuse the recording and require the recording to be turned off at any time during this encounter. documented in this encounter Plan of Treatment Upcoming Encounters Date Type Department Care Team (Late st Contact Info) Description 12/23/2024 9:45 AM EDT Office Visit [address] [phone] Castro Manzanares MD [address] [place] [address] Pending Results Name Type Priority Associated Diagnoses Date /Time Calcium, ionized Lab Routine Hypercalcemia 12/17/2024 2:11 PM EDT Parathyroid hormone related protein Lab Routine Hypercalcemia 12/17/2024 2:11 PM EDT Interferon gamma for TB, qualitative Lab Routine Splenomegaly 12/17/2024 2:11 PM EDT Mononucleosis screen Lab Routine Splenomegaly 12/17/2024 2:11 PM EDT EDUARDO IFA with titer and pattern Lab Routine Splenomegaly 12/17/2024 2:11 PM EDT Cyclic citrullinated peptide, IgG and IgA Lab Routine Splenomegaly 12/17/2024 2:11 PM EDT Borrelia burgdorferi antibody Lab Routine Arthralgia, unspecified joint 12/17/2024 2:11 PM EDT Scheduled Orders Name Type Priority Associated Diagnoses Orde r Schedule Calcium, ionized Lab Routine Hypercalcemia 1 Occurrences starting 12/17/2024 until 12/17/2025 Parathyroid hormone related protein Lab Routine Hypercalcemia 1 Occurrences starting 12/17/2024 until 12/17/2025 Interferon gamma for TB, qualitative Lab Routine Splenomegaly 1 Occurrences starting 12/17/2024 until 12/17/2025 Mononucleosis screen Lab Routine Splenomegaly 1 Occurrences starting 12/17/2024 until 12/17/2025 EDUARDO IFA with titer and pattern Lab Routine Splenomegaly 1 Occurrences starting 12/17/2024 until 12/17/2025 Cyclic citrullinated peptide, IgG and IgA Lab Routine Splenomegaly 1 Occurrences starting 12/17/2024 until 12/17/2025 Borrelia burgdorferi antibody Lab Routine Arthralgia, unspecified joint 1 Occurrences starting 12/17/2024 until 12/17/2025 IR Bx Lung/Mediastinum Perc Ndl Core w Image Guide Imaging Routine Mediastinal lymphadenopathy Expected: 12/17/2024, Expires: 12/17/2025 Scheduled Referrals Name Type Priority Associated Diagnoses Orde r Schedule Ambulatory referral to Nephrology Outpatient Referral Routine Acute kidney injury (CMS/HCC V24) 1 Occurrences starting 12/17/2024 until 12/17/2025 Ambulatory referral to Hematology Outpatient Referral Routine Anemia, unspecified type 1 Occurrences starting 12/17/2024 until 12/17/2025 Ambulatory referral to Thoracic Surgery Outpatient Referral Routine Mediastinal lymphadenopathy 1 Occurrences starting 12/17/2024 until 12/17/2025 Ambulatory referral to Gastroenterology Outpatient Referral Routine Splenomegaly 1 Occurrences starting 12/17/2024 until 12/17/2025 Ambulatory referral to Vascular Surgery Outpatient Referral Routine Mesenteric lymphadenopathy 1 Occurrences starting 12/17/2024 until 12/17/2025 documented as of this encounter Results * Uric acid (12/17/2024 2:11 PM EDT) [facility] Uric Acid 6.1 3.7 - 9.2 mg/dL LAB CHEMISTRY METHOD 12/17/2024 5:20 PM EDT [facility] Blood Venous blood specimen / Unknown Venipuncture / Unknown 12/17/2024 2:11 PM EDT 12/17/2024 2:11 PM EDT Castro Manzanares MD LAB BLOOD ORDERABLES Final Result Performing Organization Address City/[facility]/ZIP Co de Phone Number [facility] [address] [place] [address], [place] [phone] * Rheumatoid factor (12/17/2024 2:11 PM EDT) [facility] Rheumatoid Factor <10.0 <15.0 I Unit/mL LAB CHEMISTRY METHOD 12/17/2024 5:20 PM EDT [facility] Blood Venous blood specimen / Unknown Venipuncture / Unknown 12/17/2024 2:11 PM EDT 12/17/2024 2:11 PM EDT Castro Manzanares MD LAB BLOOD ORDERABLES Final Result [facility] [address] [place] [address], [place] [phone] * (ABNORMAL) Iron and TIBC (12/17/2024 2:11 PM EDT) [facility] Iron 39(L) 50 - 160 mcg/dL LAB CHEMISTRY METHOD 12/17/2024 5:23 PM EDT [facility] TIBC 360 250 - 450 mcg/dL LAB CHEMISTRY METHOD 12/17/2024 5:23 PM EDT [facility] Iron Saturation 11(L) 20 - 50 % LAB CHEMISTRY METHOD 12/17/2024 5:23 PM EDT [facility] Blood Venous blood specimen / Unknown Venipuncture / Unknown 12/17/2024 2:11 PM EDT 12/17/2024 2:11 PM EDT Castro Manzanares MD LAB BLOOD ORDERABLES Final Result [facility] [address] [place] [address], [place] [phone] * Reticulocyte count (12/17/2024 2:11 PM EDT) Retic Ct Abs 0.060 0.030 - 0.090 M/mcL LAB HEMETOLOGY METHOD 12/17/2024 5:00 PM EDT [facility] Retic Ct Pct 1.3 0.7 - 1.7 % LAB HEMETOLOGY METHOD 12/17/2024 5:00 PM EDT [facility] Immature Retic Fract 9.2 2.3 - 15.9 % LAB HEMETOLOGY METHOD 12/17/2024 5:00 PM EDT [facility] Reticulocyte Hemoglobin 29.8 >29.0 pcg LAB HEMETOLOGY METHOD 12/17/2024 5:00 PM EDT [facility] Blood Venous blood specimen / Unknown Venipuncture / Unknown 12/17/2024 2:11 PM EDT 12/17/2024 2:11 PM EDT Castro Manzanares MD LAB BLOOD ORDERABLES Final Result [facility] [address] [place] [address], [place] [phone] * (ABNORMAL) Parathyroid hormone intact (12/17/2024 2:11 PM EDT) PTH <6.3(L) 18.5 - 88.0 pcg/mL LAB CHEMISTRY METHOD 12/17/2024 6:23 PM EDT [facility] Blood Venous blood specimen / Unknown Venipuncture / Unknown 12/17/2024 2:11 PM EDT 12/17/2024 2:11 PM EDT Castro Manzanares MD LAB BLOOD ORDERABLES Final Result Performing Organization Address [facility]/ZIP Co de Phone Number [facility] [address] [place] [address], [place] [phone] * (ABNORMAL) Comprehensive metabolic panel (12/17/2024 2:11 PM EDT) Pathologist [facility] Sodium 137 133 - 145 mmol/L LAB CHEMISTRY METHOD 12/17/2024 6:01 PM [facility] Potassium 3.9 3.5 - 5.5 mmol/L LAB CHEMISTRY METHOD 12/17/2024 6:01 PM [facility] Chloride 101 96 - 110 mmol/L LAB CHEMISTRY METHOD 12/17/2024 6:01 PM [facility] CO2 31 21 - 32 mmol/L LAB CHEMISTRY METHOD 12/17/2024 6:01 PM [facility] Anion Gap 5 3 - 11 LAB CHEMISTRY METHOD 12/17/2024 6:01 PM [facility] Glucose 91 70 - 100 mg/dL LAB CHEMISTRY METHOD 12/17/2024 6:01 PM [facility] BUN 13 5 - 25 mg/dL LAB CHEMISTRY METHOD 12/17/2024 6:01 PM [facility] Creatinine 1.76(H) 0.70 - 1.30 mg/dL LAB CHEMISTRY METHOD 12/17/2024 6:01 PM [facility] eGFR 52(L) >=60 mL/min/1 .73m2 LAB CHEMISTRY METHOD 12/17/2024 6:01 PM [facility] Comment:Calculation based on the??Chronic Kidney Disease Epidemiology Collaboration (CKD-EPI) equation refit??without adjustment for race. BUN/Creatinine Ratio 7.4 LAB CHEMISTRY METHOD 12/17/2024 6:01 PM [facility] Calcium 14.7(HH) 8.5 - 10.5 mg/dL LAB CHEMISTRY METHOD 12/17/2024 6:01 PM [facility] AST (SGOT) 17 10 - 42 unit/L LAB CHEMISTRY METHOD 12/17/2024 6:01 PM [facility] ALT (SGPT) 22 10 - 60 unit/L LAB CHEMISTRY METHOD 12/17/2024 6:01 PM [facility] Alkaline Phosphatase 129(H) 42 - 121 unit/L LAB CHEMISTRY METHOD 12/17/2024 6:01 PM [facility] Total Protein 9.0(H) 6.0 - 8.0 g/dL LAB CHEMISTRY METHOD 12/17/2024 6:01 PM [facility] Albumin 3.8 3.2 - 5.0 g/dL LAB CHEMISTRY METHOD 12/17/2024 6:01 PM [facility] Total Bilirubin 0.5 0.0 - 1.4 mg/dL LAB CHEMISTRY METHOD 12/17/2024 6:01 PM [facility] Blood Venous blood specimen / Unknown Venipuncture / Unknown 12/17/2024 2:11 PM EDT 12/17/2024 2:11 PM EDT us Castro Manzanares MD LAB BLOOD ORDERABLES Final Result [facility] [address] [place] [address], documented in this encounter Visit Diagnoses Diagnosis Splenomegaly- Primary Vitamin D deficiency disease Unspecified vitamin D deficiency Anemia, unspecified type Acute kidney injury (CMS/HCC V24) Mediastinal lymphadenopathy Enlargement of lymph nodes Hypercalcemia History of non-nicotine vaping History of cigar smoking Mesenteric lymphadenopathy Arthralgia, unspecified joint documented in this encounter Care Teams Mortgage Clerk Relationship Specialty Start Date End Date Castro Manzanares MD [address] [place] [address] PCP - General Internal Medicine 06/25/22 documented as of this encounter
--- NOTE | 2024-12-18 03:13 | ECG_ITS ---
Test Reason : HYPERCALCEMIA Blood Pressure : */* mmHG Vent. Rate : 78 BPM Atrial Rate : 78 BPM P-R Int : 166 ms QRS Dur : 82 ms QT Int : 344 ms P-R-T Axes : 64 56 46 degrees QTcB Int : 392 ms Normal sinus rhythm with sinus arrhythmia Normal ECG When compared with ECG of 14-Dec-2024 08:34, No significant change was found Referred By: Enedina Lepe Electronically Signed By: Syd Riddle
--- NOTE | 2024-12-18 03:40 | PM.IMHP ---
History of Present Illness Date of Service: 12/18/24 Chief Complaint: hypercalcemia 34-year-old male with a past medical history of anxiety, depression, anemia, recent admission to the hospital for hypercalcemia, lymphadenopathy presented to the hospital today with a chief complaint of abnormal labs. Patient reports that after discharge from the hospital he had a routine follow-up visit with his PCP today and has labs done again and noted to have elevated calcium levels; patient received a call from his PCP to go to the ER for further evaluation. Patient reports that he still feels constipated. Also has increased urination and thirst. Denies any abdominal pain. Denies any chest pain or palpitations. Denies any Nausea or vomiting. reports that he is scheduled to follow up with Hematology-Oncology for biopsy of his lymph nodes -Has not done yet. Review of all other systems is negative except mentioned above ER course: Per ER team, patient's exam was benign; on labs noted to have calcium levels of 13.8. Given IV fluids. Discussed with Nephrology who suggested zoledronic acid. Notified Pharmacy to obtain it. [facility] Medical History Adjustment disorder with mixed anxiety and depressed mood ADHD (attention deficit hyperactivity disorder) Biceps rupture, distal Weight loss Decreased appetite Blurry vision Polydipsia Scrotal pain Social History Household Members: None Housing: Apartment Housing Other:: 2nd floor Do you presently have visiting nurse or other home services: No Alcohol intake: current Alcohol intake frequency: holidays/special occasions only Alcohol type: beer Comment: 1-2 times per week Patient Tobacco Use Status: Former Tobacco user Smoked in Last 30 Days: No Use of substances other than those prescribed or required for medical reasons: Yes Substance Use Type: Marijuana Substance Use Frequency: Daily Advance Directives: No Advance Directives Information Provided: Yes Do you have a plan to hurt others: No Plan service: No Meds Allergies Allergy/AdvReac Type Severity Reaction Status Date / Time No Known Allergies Allergy Verified 12/17/24 20:47 Active Medications: Current Medications Sodium Chloride (Ns) 2,000 mls @ 999 mls/hr IVCONT .Q2H1M ONE Stop: 12/18/24 03:41 Last Admin: 12/18/24 01:51 Dose: 999 mls/hr Home Medications ?Medication ?Instructions ?Recorded ?Confirmed ?Last Taken ?Type zolpidem 10 mg tablet 10 mg PO BEDTIME PRN Sleep 09/01/24 12/14/24 12/13/24 History fluoxetine 40 mg capsule 80 mg PO DAILY 12/14/24 12/14/24 12/13/24 History Physical Exam Vital Signs and Narrative: Vital Signs: Last Vital Signs Temp 98.1 F 12/18/24 01:57 Pulse 81 12/18/24 01:57 Resp 17 12/18/24 01:57 BP 101/49 L 12/18/24 01:57 Pulse Ox 98 12/18/24 01:57 O2 Del Method Room Air 12/18/24 01:57 BMI result Body Mass Index 28.1 Gen: Appears be in no acute distress HEENT: NCAT, Moist mucosa. Pulmonary: Vesicular breath sounds, fair air entry CVS: Normal S1-S2 Abdomen: BS+, Soft, Nontender Extremities: Warm well perfused Neuro: Alert and awake. Results Labs 12/17/24 21:11 12/17/24 21:11 Labs: Laboratory Results - last 24 hr 12/17/24 12/17/24 21:11 21:11 MCV 74.9 L MCH 24.9 L MCHC 33.2 RDW 17.0 H Plt Count 232 MPV 9.6 Immature Gran % (Auto) 0.4 Neut % (Auto) 63.2 Lymph % (Auto) 15.6 L [place] % (Auto) 14.8 H Eos % (Auto) 5.0 H Baso % (Auto) 1.0 Lymph # (Auto) 0.8 L [place] # (Auto) 0.7 Eos # (Auto) 0.2 Baso # (Auto) 0.1 Abs Immat Gran (auto) 0.02 Absolute Neuts (auto) 3.0 Absolute Nucleated RBC 0.000 Nucleated RBC % (auto) 0.0 Anion Gap 13 Estim Creat Clear Calc 66.0 Estimated GFR 46 Random Glucose 121 H Calcium 13.6 H* D 13.8 H* Total Bilirubin 0.4 AST 21 ALT 28 Alkaline Phosphatase 105 Total Protein 7.9 Albumin 3.8 Assessment and Plan (1) Hypercalcemia: Status: Acute Plan 34-year-old male with a past medical history of anxiety, depression, anemia, recent admission to the hospital for hypercalcemia, lymphadenopathy presented to the hospital today with a chief complaint of abnormal labs- Hypercalcemia. hypercalcemia: Patient Calcium levels on presentation was 13.8. calcium levels at the time of discharge was 11. following labs obtained on 12/15/2024: PTH was 6.3 On 12/15/2024 PTH RP levels pending vitamin-D 250 H level 12.9 on 12/15/2024 IgG level 1577-WNL IgM 128-WNL IgA 585-elevated Patient has symptomatic-reports constipation, polyuria, polydipsia. Patient was educated to stop taking vitamin-D supplementation. Plan: -IV fluids -Bowel regimen -Nephrology was notified -suggested zoledronic acid. -We will also give a dose of calcitonin. Lymphadenopathy: Hematology oncology f DVT prophylaxis: SubQ heparin Code status: Full code ollow-up. Quality Stroke Does the patient have a stroke diagnosis?: No VTE Prior VTE?: No VTE Risk Level:: Medical - moderate - high VTE Device Contraindication: Treatment Not Indicated VTE Drug Contraindication: N/A - Med Ordered
[2024-12-18] MEDS: Heparin Sodium,Porcine 5,000 UNIT/ML VIAL 5000 UNIT SUBCUT ×3 (04:15→20:10)
--- NOTE | 2024-12-18 04:17 | PC.NURSE ---
Zoledronic Acid and Calcitonin nasal spray are not available at this time. Dr. Lepe notified, no new orders at this time.
[2024-12-18] MEDS: Lactated Ringers 1,000 ML 100 ML IVCONT ×3 (04:29→23:30)
[2024-12-18 07:07] LABS: Basophils Absolute Auto 0.1 X10*3/uL (0.0-0.2); Basophils Percent Auto 1.1 % (0-2); Eosinophils Absolute Auto 0.3 X10*3/uL (0.0-0.4); Eosinophils Percent Auto 5.6 % (0-4); Hematocrit 31.5 % (42.0-52.0); Hemoglobin 10.2 g/dl (14.0-18.0); Imm Gran Abs Auto 0.02 X10*3/uL (0.00-0.03); Imm Gran Pct Auto 0.4 % (0.0-0.4); Lymphocytes Absolute Auto 0.7 X10*3/uL (1.2-4.9); Lymphocytes Percent Auto 16.4 % (20-40); MANUAL DIFF FLAG SCAN; Mean Corpuscular HGB Conc 32.4 g/dl (31.0-36.0); Mean Corpuscular Hemoglobin 24.7 pg (27.0-33.0); Mean Corpuscular Volume 76.3 fL (80.0-98.0); Mean Platelet Volume 10.4 fL (9.4-12.4); Monocytes Percent Auto 21.6 % (2-11); Neutrophils Absolute Auto 2.4 x10*3/uL (2.0-8.3); Neutrophils Percent Auto 54.9 % (45-73); Platelet Count 190 X10*3/uL (160-400); Red Blood Count 4.13 X10*6/uL (4.60-5.80); Red Cell Distribution Width 16.9 % (11.0-16.0); SCAN SMEAR FLAG 1; White Blood Count 4.5 X10*3/uL (4.8-10.8)
[2024-12-18 07:25] LABS: Alanine Aminotransferase 13 U/L (0-40); Albumin Level 3.3 g/dL (3.5-5.0); Alkaline Phosphatase 89 U/L (39-117); Anion Gap 10 (12-20); Aspartate Amino Transferase 18 U/L (5-37); Bilirubin Total 0.2 mg/dL (0.0-1.0); Blood Urea Nitrogen 17 mg/dL (9-16); Calcium 12.5 mg/dL (8.4-10.2); Carbon Dioxide 26 mmol/L (22-29); Chloride 107 mmol/L (96-108); Creatinine Clr Calc Pharmacy 75.6; Estimated Glomerular Filt Rate 53; Glucose Random 97 mg/dL (60-115); Lactate Dehydrogenase 115 U/L (118-273); Sodium 139 mmol/L (135-145); Total Protein 6.9 g/dL (6.5-8.0)
[2024-12-18 07:39] LABS: SLIDE REVIEW VERIFIED
[2024-12-18] MEDS: Docusate Sodium 100 MG CAPSULE PO ×2 (08:00→20:09)
[2024-12-18] MEDS: 0.9 % Sodium Chloride Flush 3 ML SYRINGE IVFLUSH ×3 (08:01→20:10)
--- NOTE | 2024-12-18 08:46 | PM.HEMONCCN ---
Subjective - Subjective Chief complaint: Abdominal pain Patient: new to practice Consult date: 12/18/24 Primary Care Provider: Castro Manzanares MD Brake Operator Helper Utilized?: No - Malay Speaking HPI - Consult Narrative Reason for consult: Lymphadenopathy/hypercalcemia Narrative: Hubert Sparrow is a 34 year old male who has been admitted for hypercalcemia and abdominal pain. Patient states that he has not been feeling well for a few months, he has had 40 lb weight loss in the last 10 months. He reports abdominal pain and constipation that has been going on for a few weeks. He was started on oral iron supplementation a few weeks ago for iron-deficiency anemia by his PCP. He presented to his PCP yesterday with complaints of abdominal pain and constipation. Blood work revealed hypercalcemia, calcium level above 13 and he was sent to emergency room. Patient had similar complaints a few days ago, CT abdomen/pelvis without contrast at that time showed splenomegaly and multiple but nonenlarged lymph nodes in the abdomen. He was being worked up for this when he presented to emergency department again yesterday and is now admitted for hypercalcemia. He received IV fluids. According to his friend and healthcare proxy, he has not been eating well. He works at [employer], he has no family, both parents are . He has no siblings. He used to drink alcohol excessively in his younger days but he has stopped. He used to play D3 level football and has suffered head concussions. He denies any risk factors for hepatitis or HIV. He denies any recent travel. Review of Systems - Constitutional Reports fatigue, Reports malaise, Denies night sweats, Reports poor appetite, Reports weakness, Reports weight loss - Cardiovascular Reports no additional cardiovascular complaints, Denies chest pain with activity, Denies fainting, Denies foot swelling - Respiratory Reports no additional respiratory complaints, Denies cough, Denies dyspnea - Gastrointestinal Reports abdominal pain, Denies black, tarry stools, Denies bright, red blood in stools, Reports constipation, Denies cramping, Denies diarrhea - Musculoskeletal Denies joint pain - Integumentary/Breasts Skin/Breast: Denies rash, Denies unusual bruising, Denies wounds PMFSH Medical History: Medical History (Last Reviewed 12/14/24 @ 08:00 by Darlin Whiteside DO) ADHD (attention deficit hyperactivity disorder) Adjustment disorder with mixed anxiety and depressed mood Biceps rupture, distal Blurry vision Decreased appetite Polydipsia Scrotal pain Weight loss Social History: Social History (Last Reviewed 12/14/24 @ 08:00 by Darlin Whiteside DO) Living Situation History: Household Members: None Housing: Apartment Housing Other:: 2nd floor Do you presently have visiting nurse or other home services: No Alcohol History Details: 1. How often do you have a drink containing alcohol?: b. Monthly or less 2. How many drinks containing alcohol do you have on a typical day when you are drinking?: a. 1 or 2 3. How often do you have six or more drinks on one occasion?: a. Never AUDIT-C Alcohol total score: 1 Currently Displaying Signs/Symptoms of Alcohol Withdrawal: No Tobacco History: Patient Tobacco Use Status: Former Tobacco user Smoked in Last 30 Days: No e-Cigarette/Vaping Use: Former Use Substance Use History: Use of substances other than those prescribed or required for medical reasons: No Substance Use Type: Marijuana Substance Use Frequency: Daily Currently Displaying Signs/Symptoms of Drug Intoxication Withdrawal: No Domestic Abuse History: Do you feel safe in your current relationship?: No Current Relationship Is there a partner from a previous relationship who is making you feel unsafe now?: No Are you made to feel afraid or neglected: No Advance Directives: Advance Directives: No Advance Directives Information Provided: Yes Homicidal Assessment: Do you have a plan to hurt others: No Plan Nutrition Assessment: Recently lost weight without trying: Yes Eating poorly because of decreased appetite: Yes Nutrition Risks: No Nutritional Risk Poor oral hygiene: No Occupation Assessmet: service: No Home Medications and Allergies Current Medications: Current Medications Acetaminophen (Acetaminophen 325 Mg Tablet) 650 mg PO Q6H PRN PRN Reason: Pain, Mild 1-3,fever,headache Calcium Carbonate (Calcium Carbonate 750 Mg Tab.Chew) 750 mg PO Q4H PRN PRN Reason: Heartburn Docusate Sodium (Docusate Sodium 100 Mg Capsule) 100 mg PO BID [facility] Last Admin: 12/18/24 08:00 Dose: 100 mg Heparin Sodium (Porcine) (Heparin Sodium,Porcine 5,000 Unit/Ml Vial) 5,000 unit SUBCUT Q8H [facility] Last Admin: 12/18/24 04:15 Dose: 5,000 unit Lactated Ringer's (Lr) 1,000 mls @ 100 mls/hr IVCONT .Q10H [facility] Last Admin: 12/18/24 04:29 Dose: 100 mls/hr Pamidronate Disodium 60 mg/ (Sodium Chloride) 260 mls @ 130 mls/hr IV ONCE ONE Stop: 12/18/24 10:59 Magnesium Hydroxide (Milk Of Magnesia 30 Ml Oral.Susp) 30 ml PO DAILY PRN PRN Reason: Constipation Melatonin (Melatonin 3 Mg Tablet) 6 mg PO BEDTIME PRN PRN Reason: Insomnia Polyethylene Glycol (Polyethylene Glycol 3350 17 Gm Powd.Pack) 17 gm PO DAILY PRN PRN Reason: Constipation Senna (Sennosides 8.6 Mg Tablet) 17.2 mg PO BEDTIME LEO Sodium Chloride (0.9 % Sodium Chloride Flush 3 Ml Syringe) 3 ml IVFLUSH QSHIFT [facility] Last Admin: 12/18/24 08:01 Dose: 3 ml Home Medications ?Medication ?Instructions ?Recorded ?Confirmed ?Type zolpidem 10 mg tablet 10 mg PO BEDTIME PRN Sleep 09/01/24 12/14/24 History fluoxetine 40 mg capsule 80 mg PO DAILY 12/14/24 12/14/24 History ergocalciferol (vitamin D2) 1,250 1,250 mcg PO QWEEK 12/18/24 History mcg (50,000 unit) capsule ferrous sulfate 325 mg (65 mg 325 mg PO BID 12/18/24 History iron) tablet,delayed release quetiapine 25 mg tablet 25 mg PO BEDTIME 12/18/24 History Allergies Allergy/AdvReac Type Severity Reaction Status Date / Time No Known Allergies Allergy Verified 12/17/24 20:47 Physical Exam Vital signs: Vital Signs Temp 97.0 F 12/18/24 07:52 Pulse 64 12/18/24 07:52 Resp 18 12/18/24 07:52 BP 138/84 12/18/24 07:52 Pulse Ox 100 12/18/24 07:52 O2 Del Method Room Air 12/18/24 07:52 Intake & Output 12/17/24 12/18/24 12/18/24 18:59 06:59 18:59 Intake Total 1999 Balance 1999 Intake: Intake, IV Amount 1999 0.9 % Sodium Chloride 2,000 ml 1999 @ 999 mls/hr IVCONT .Q2H1M ONE Rx#:[id number] Other: Last Bowel Movement 12/16/24 Weight 86.183 kg Weight 86.183 kg - Constitutional Present: no acute distress - Routine HEENT Exam Head: Present: normal inspection Eye: Present: EOMI - Routine Neck Exam Present: supple. Absent: lymphadenopathy - Routine Respiratory Exam Present: CTAB. Absent: wheezes - Routine Cardiovascular Exam Cardiovascular: Present: RRR, S1, S2 - Routine Abdominal Exam Present: soft - Routine Extremities Exam Absent: pedal edema - Routine Skin Exam Present: intact - Routine Neurological Exam Present: alert, oriented X3 Hem/Onc Consult Result - Labs CBC & Chem 7: 12/18/24 06:41 12/18/24 06:41 Labs: Short CBC 12/17/24 12/18/24 Range/Units 21:11 06:41 WBC 4.8 4.5 L (4.8-10.8) X10*3/uL Hgb 11.1 L 10.2 L (14.0-18.0) g/dl Hct 33.4 L 31.5 L (42.0-52.0) % Plt Count 232 190 (160-400) X10*3/uL BMP 12/17/24 12/17/24 12/18/24 21:11 21:11 06:41 Sodium 139 139 Potassium 3.7 4.0 Chloride 103 107 Carbon Dioxide 27 26 BUN 17 H 17 H Creatinine 1.73 H 1.51 H Calcium 13.6 H* D 13.8 H* 12.5 H* D Liver Function 12/17/24 12/18/24 Range/Units 21:11 06:41 Total Bilirubin 0.4 0.2 (0.0-1.0) mg/dL AST 21 18 (5-37) U/L ALT 28 13 (0-40) U/L Alkaline Phosphatase 105 89 (39-117) U/L Albumin 3.8 3.3 L (3.5-5.0) g/dL Assessment and Plan Patient Active problem list reviewed?: Yes (1) Lymphadenopathy Status: Acute Assessment and plan: 1. This is a 34-year-old black male presenting with hypercalcemia, renal insufficiency, splenomegaly and lymphadenopathy. This is concerning for lymphoma. CT chest without contrast performed 12/15/2024 shows mediastinal lymphadenopathy with lymph nodes measuring from 1.4-2.5 cm. Probable bilateral hilar lymphadenopathy, enlarged subcarinal lymph node, bilateral axillary lymph node larger in the right measuring 1.7 cm. Splenomegaly was seen on CT abdomen/pelvis performed 12/14/2024. LDH is not elevated, uric acid level is pending. Renal insufficiency is improving with hydration. His calcium level is down to 12.5 mg per dL, previously 13.8 mg/dL. Pamidronate 60 mg IV x1 to be given. PTH and PTHrP is pending. Hepatitis/HIV test submitted. I discussed with the patient and his caregiver that he will need a biopsy, right axillary lymph node core biopsy can be performed. Further recommendations to follow after biopsy. I thank you very much for this consultation. Patient was advised to follow up with oncology upon discharge. - Time Spent With Patient Time Spent with Patient (in minutes): 20
[2024-12-18 09:01] LABS: Immature Retic Fraction 7.4 % (2.3-13.4); Retic HGB Equivalent 30.2 pg (30.0-35.0); Reticulocyte Percent 1.4 % (0.5-1.8); Reticulocytes Absolute 0.059 X10*6/uL (0.026-0.095)
--- NOTE | 2024-12-18 09:22 | MHC.CM.PN ---
EMR REVIEWED, PT W/HYPERCALCEMIA AND RECENT DC 12/15 FOR SAME PROBLEM, PT AT PCP APPT AND WAS INSTRUCTED TO GO TO ED D/T HYPERCALCEMIA. CM MET W/PT WHO REPORTS HE LIVES ALONE, IS FULLY INDEP W/ALL CARE, DENIES USE OF DME/SERVICES, PT'S GOAL FOR DC IS HOME SELF-CARE. PT VERIFIES PCP ON FILE IS CORRECT AND PT EDUCATED ON AND DECLINES TO COMPLETE A HCP THIS ADMIT, PT AWARE HE CAN ASK FOR CM IF HE CHANGES HIS MIND.
[2024-12-18] MEDS: Pamidronate Disodium 60 MG in 0.9 % Sodium Chloride 250 ML 130 MG IV (09:23)
[2024-12-18 09:32] LABS: Uric Acid 7.8 mg/dL (3.4-7.0)
--- NOTE | 2024-12-18 09:36 | PHA.MEDREC ---
Pharmacy Consult ? Medication Reconciliation Pharmacy has completed the medication reconciliation, spoke to patient who confirmed he only takes fluoxetine 80mg and ambien 10mg and nothing OTC.
[2024-12-18 09:46] LABS: Ferritin 247 ng/mL (20-250)
[2024-12-18 09:50] LABS: Vitamin B12 495 pg/mL (200-900)
--- NOTE | 2024-12-18 09:52 | PM.EVENT ---
Event Note Date of Service: 12/18/24 Event Note: Pt seen and examined, readmission for hypercalcemia and lymphadenopathy and now MARCIE. IVF, added Pamidronate, arranging for lymph node and kidney biopsy...check LEÓN level to rule out sarcoid. Oncology and Nephrolosty following Time Spent With Patient Time: Total time managing care of this patient today ____ minutes.
[2024-12-18 09:57] LABS: HBS Num1 42.82 mIU/mL (0-7.99); HBc Num1 0.23 S/CO (0.00-0.79); HBsAGNum1 0.39 S/CO (0.00-0.99); HIV AB/AG Nonreactive (Nonreactive); HIV Num 1 0.19 S/CO (0.00-0.99); Hepatitis B Core Antibody Nonreactive (Nonreactive); Hepatitis B Surface Antigen Negative (Negative); ~HepC Num1 0.18 S/CO (0.00-0.79); ~Hepatitis B Surface Antibody REACTIVE (Nonreactive); ~Hepatitis C Antibody Nonreactive (Nonreactive)
--- NOTE | 2024-12-18 15:23 | P.PNNP_ITS ---
Subjective Subjective Date of Service: 12/18/24 Interval history: Seen this morning. Feels better. Gotten Na palmidronate; Going to have lymph node biopsy Physical Exam 2 Vital Signs: Vital Signs: Last Vital Signs Temp 98.4 F 12/18/24 12:00 Pulse 71 12/18/24 12:00 Resp 17 12/18/24 12:00 BP 164/68 H 12/18/24 12:00 Pulse Ox 100 12/18/24 12:00 O2 Del Method Room Air 12/18/24 12:00 BMI result Body Mass Index 28.1 Const: General: no acute distress Orientation/consciousness: patient oriented x3 HEENT: Head: Yes normocephalic Mouth: Normal oral and palatal mucosa present Eyes: EOM: EOMs intact bilaterally Neck: Neck: Yes supple Resp: Auscultation: clear to auscultation bilaterally Cardio: Jugular venous distension: no JVD Rate: regular rate GI: Palpation (GI): Soft to palpation Auscultation: normal bowel sounds : General: Yes no CVA tenderness Back/Spine/Pelvis: Back: no CVA tenderness Skin: General skin exam: no rashes or lesions noted Neuro: General: patient oriented x3 and moves all extremities Extrem: General: Yes no pedal edema Objective Data Labs 12/18/24 06:41 12/18/24 06:41 Labs: Laboratory Results - last 24 hr 12/17/24 12/17/24 12/18/24 21:11 21:11 06:41 WBC 4.8 4.5 L RBC 4.46 L 4.13 L Hgb 11.1 L 10.2 L Hct 33.4 L 31.5 L MCV 74.9 L 76.3 L MCH 24.9 L 24.7 L MCHC 33.2 32.4 RDW 17.0 H 16.9 H Plt Count 232 190 MPV 9.6 10.4 Immature Gran % (Auto) 0.4 0.4 Neut % (Auto) 63.2 54.9 Lymph % (Auto) 15.6 L 16.4 L [place] % (Auto) 14.8 H 21.6 H Eos % (Auto) 5.0 H 5.6 H Baso % (Auto) 1.0 1.1 Lymph # (Auto) 0.8 L 0.7 L [place] # (Auto) 0.7 1.0 Eos # (Auto) 0.2 0.3 Baso # (Auto) 0.1 0.1 Abs Immat Gran (auto) 0.02 0.02 Absolute Neuts (auto) 3.0 2.4 Absolute Nucleated RBC 0.000 0.000 Nucleated RBC % (auto) 0.0 0.0 Smear Tech's Comments VERIFIED Absolute Retic Percent Retic Immature Retic Fraction Retic Hgb Equivalent Sodium 139 139 Potassium 3.7 4.0 Chloride 103 107 Carbon Dioxide 27 26 Anion Gap 13 10 L BUN 17 H 17 H Creatinine 1.73 H 1.51 H Estim Creat Clear Calc 66.0 75.6 Estimated GFR 46 53 Random Glucose 121 H 97 Uric Acid Calcium 13.6 H* D 13.8 H* 12.5 H* D Ferritin Total Bilirubin 0.4 0.2 AST 21 18 ALT 28 13 Alkaline Phosphatase 105 89 Lactate Dehydrogenase 115 L Total Protein 7.9 6.9 Albumin 3.8 3.3 L Vitamin B12 Folate Hep Bs Antigen Hep Bs Antibody Hep B Core Total Ab Hepatitis C Ab (EIA) HIV 1&2 Ab/P24 Ag 4thGn 12/18/24 12/18/24 08:42 08:54 WBC RBC Hgb Hct MCV MCH MCHC RDW Plt Count MPV Immature Gran % (Auto) Neut % (Auto) Lymph % (Auto) [place] % (Auto) Eos % (Auto) Baso % (Auto) Lymph # (Auto) [place] # (Auto) Eos # (Auto) Baso # (Auto) Abs Immat Gran (auto) Absolute Neuts (auto) Absolute Nucleated RBC Nucleated RBC % (auto) Smear Tech's Comments Absolute Retic 0.059 Percent Retic 1.4 Immature Retic Fraction 7.4 Retic Hgb Equivalent 30.2 Sodium Potassium Chloride Carbon Dioxide Anion Gap BUN Creatinine Estim Creat Clear Calc Estimated GFR Random Glucose Uric Acid 7.8 H Calcium Ferritin 247 Total Bilirubin AST ALT Alkaline Phosphatase Lactate Dehydrogenase Total Protein Albumin Vitamin B12 495 Folate 6.0 Hep Bs Antigen Negative Hep Bs Antibody REACTIVE Hep B Core Total Ab Nonreactive Hepatitis C Ab (EIA) Nonreactive HIV 1&2 Ab/P24 Ag 4thGn Nonreactive Procedures Date of Service Date of Service: 12/18/24 Assessment & Plan Assessment and plan (1) MARCIE (acute kidney injury): Status: Acute (2) Hypercalcemia: Status: Acute Plan MARCIE due to volume depletion from hypercalcemia W/U as ordered and is in progress; Na palmidronate given Serum calcium/ creatinine better; Lymph node biopsy ? today likely diagnosis- sarcoid but unsure yet; Renal biopsy Saturday No steroids indicated now; Further management is pending data Progress Note: Quality Stroke Does the patient have a stroke diagnosis?: No
[2024-12-18] MEDS: Lidocaine HCl 1 % MPF 5 ML VIAL SUBCUT (15:52)
[2024-12-18] MEDS: Sennosides 8.6 MG TABLET 17.2 MG PO (20:09)
[2024-12-19 03:41] VITALS: BP 133/60; PULSE 85; RESP 18; TEMP 37.1; O2SAT 96
[2024-12-19] MEDS: Heparin Sodium,Porcine 5,000 UNIT/ML VIAL 5000 UNIT SUBCUT ×3 (05:19→19:44)
[2024-12-19 06:49] LABS: Anion Gap 9 (12-20); Blood Urea Nitrogen 13 mg/dL (9-16); Calcium 12.1 mg/dL (8.4-10.2); Carbon Dioxide 26 mmol/L (22-29); Chloride 107 mmol/L (96-108); Creatinine Clr Calc Pharmacy 65.2; Estimated Glomerular Filt Rate 45; Glucose Random 97 mg/dL (60-115); Potassium 3.9 mmol/L (3.3-5.1); Sodium 138 mmol/L (135-145)
[2024-12-19 07:25] VITALS: BP 144/75; PULSE 83; RESP 18; TEMP 36.7; O2SAT 99
[2024-12-19] MEDS: Docusate Sodium 100 MG CAPSULE PO ×2 (09:18→19:45)
[2024-12-19] MEDS: Lactated Ringers 1,000 ML 100 ML IVCONT ×2 (09:18→19:45)
--- NOTE | 2024-12-19 09:36 | P.PNIM_ITS ---
Subjective Subjective Date of Service: 12/19/24 Interval History: f/u on bud, lymphadenopathy Physical Exam 2 Vital Signs: Vital Signs: Last Vital Signs Temp 98.0 F 12/19/24 07:25 Pulse 83 12/19/24 07:25 Resp 18 12/19/24 07:25 BP 144/75 H 12/19/24 07:25 Pulse Ox 99 12/19/24 07:25 O2 Del Method Room Air 12/19/24 07:25 BMI result Body Mass Index 28.1 General: AO X 3, no acute distress Resp: CTA bilateral CVS: S1,S2,RRR GI: +BS, NT, no distention Skin: No rash Neuro: motor grossly intact Psych: appropriate affect Const: Other: Appearance: Alert. Oriented X3. No acute distress. Eyes: Pupils equal, round and reactive to light. ENT: Pharynx normal. Neck: Normal inspection. Neck supple. No lymph nodes noted. No crepitus CVS: Normal heart rate and rhythm. Pulses normal. Normal S1 and S2 Respiratory: No respiratory distress. Breath sounds normal. No Wheezing. No rales Abdomen: Soft and nontender. No rigidity. No distention. Skin: Skin warm and dry. Normal skin color. Normal skin turgor. Extremities: No lower extremity edema. No Lacerations. No Rash Neuro: Oriented X 3. No motor deficit. No sensory deficit. Moving all extremities. No slurred speech. CN 2 through 12 grossly intact Psych: calm, cooperative, normal affect General: no acute distress Objective Data Active Medications Acetaminophen (Acetaminophen 325 Mg Tablet) 650 mg PO Q6H PRN PRN Reason: Pain, Mild 1-3,fever,headache Calcium Carbonate (Calcium Carbonate 750 Mg Tab.Chew) 750 mg PO Q4H PRN PRN Reason: Heartburn Docusate Sodium (Docusate Sodium 100 Mg Capsule) 100 mg PO BID [facility] Last Admin: 12/19/24 09:18 Dose: 100 mg Documented By: THO Heparin Sodium (Porcine) (Heparin Sodium,Porcine 5,000 Unit/Ml Vial) 5,000 unit SUBCUT Q8H [facility] Last Admin: 12/19/24 05:19 Dose: 5,000 unit Documented By: CHARLIE Lactated Ringer's (Lr) 1,000 mls @ 100 mls/hr IVCONT .Q10H [facility] Last Admin: 12/19/24 09:18 Dose: 100 mls/hr Documented By: THO Magnesium Hydroxide (Milk Of Magnesia 30 Ml Oral.Susp) 30 ml PO DAILY PRN PRN Reason: Constipation Melatonin (Melatonin 3 Mg Tablet) 6 mg PO BEDTIME PRN PRN Reason: Insomnia Polyethylene Glycol (Polyethylene Glycol 3350 17 Gm Powd.Pack) 17 gm PO DAILY PRN PRN Reason: Constipation Senna (Sennosides 8.6 Mg Tablet) 17.2 mg PO BEDTIME [facility] Last Admin: 12/18/24 20:09 Dose: 17.2 mg Documented By: CHARLIE Sodium Chloride (0.9 % Sodium Chloride Flush 3 Ml Syringe) 3 ml IVFLUSH QSHIFT [facility] Last Admin: 12/18/24 20:10 Dose: 3 ml Documented By: CHARLIE Labs 12/18/24 06:41 12/19/24 06:01 Labs: Laboratory Results - last 24 hr 12/18/24 12/18/24 12/19/24 08:42 08:54 06:01 Hold Purple Top SEE NOTE Anion Gap 9 L Estim Creat Clear Calc 65.2 Estimated GFR 45 Random Glucose 97 Calcium 12.1 H Ferritin 247 Vitamin B12 495 Folate 6.0 Hep Bs Antigen Negative Hep Bs Antibody REACTIVE Hep B Core Total Ab Nonreactive Hepatitis C Ab (EIA) Nonreactive HIV 1&2 Ab/P24 Ag 4thGn Nonreactive Assessment and Plan (1) BUD (acute kidney injury): Status: Acute (2) Acute hyperkalemia: Status: Acute (3) Acute dehydration: Status: Acute Plan 34-year-old male with a past medical history of anxiety, depression, anemia, recent admission to the hospital for hypercalcemia, lymphadenopathy presented to the hospital today with a chief complaint of abnormal labs- Hypercalcemia and BUD Hypercalcemia, lymphadenoapathy, hilar adenopathy, DDx: lymphoma, sarcoid BUD improving received pamidronate 60 on 12/18 continue ivf lymph node biopsy done on 12/18 planned for renal bx on 12/21 nephrology and hematology following bowel regimen for constipation DVT prophylaxis: SubQ heparin Code status: Full code ollow-up. Quality Stroke Does the patient have a stroke diagnosis?: No VTE Prior VTE?: No VTE Risk Level:: Medical - moderate - high VTE Device Contraindication: Treatment Not Indicated VTE Drug Contraindication: N/A - Med Ordered
[2024-12-19 11:12] VITALS: BP 145/79; PULSE 78; RESP 18; TEMP 37.1; O2SAT 100
--- NOTE | 2024-12-19 13:14 | PM.HEMONCPN ---
Medical Summary - Medical Summary Date of Service: 12/19/24 Chief complaint: Constipation Primary Care Provider: Castro Manzanares MD Veneer Jointer Operator Utilized?: No - Cameroonian Speaking Interval History Interval history: Hubert Sparrow is a 34 year old male who has been admitted for hypercalcemia and abdominal pain. Patient states that he has not been feeling well for a few months, he has had 40 lb weight loss in the last 10 months. He reports abdominal pain and constipation that has been going on for a few weeks. He was started on oral iron supplementation a few weeks ago for iron-deficiency anemia by his PCP. He presented to his PCP yesterday with complaints of abdominal pain and constipation. Blood work revealed hypercalcemia, calcium level above 13 and he was sent to emergency room. Patient had similar complaints a few days ago, CT abdomen/pelvis without contrast at that time showed splenomegaly and multiple but nonenlarged lymph nodes in the abdomen. He was being worked up for this when he presented to emergency department again yesterday and is now admitted for hypercalcemia. He received IV fluids. According to his friend and healthcare proxy, he has not been eating well. He works at [employer], he has no family, both parents are . He has no siblings. He used to drink alcohol excessively in his younger days but he has stopped. He used to play D3 level football and has suffered head concussions. He denies any risk factors for hepatitis or HIV. He denies any recent travel. He is feeling better overall. He underwent right axillary node FNA and is awaiting kidney biopsy on Saturday. Review of Systems - Neurologic Denies syncope, Reports weakness PMFSH Medical History: Medical History (Last Reviewed 12/14/24 @ 08:00 by Darlin Whiteside DO) ADHD (attention deficit hyperactivity disorder) Adjustment disorder with mixed anxiety and depressed mood Biceps rupture, distal Blurry vision Decreased appetite Polydipsia Scrotal pain Weight loss Social History: Social History (Last Reviewed 12/14/24 @ 08:00 by Darlin Whiteside DO) Living Situation History: Household Members: None Housing: Apartment Housing Other:: 2nd floor Do you presently have visiting nurse or other home services: No Alcohol History Details: 1. How often do you have a drink containing alcohol?: b. Monthly or less 2. How many drinks containing alcohol do you have on a typical day when you are drinking?: a. 1 or 2 3. How often do you have six or more drinks on one occasion?: a. Never AUDIT-C Alcohol total score: 1 Currently Displaying Signs/Symptoms of Alcohol Withdrawal: No Tobacco History: Patient Tobacco Use Status: Former Tobacco user Smoked in Last 30 Days: No e-Cigarette/Vaping Use: Former Use Substance Use History: Use of substances other than those prescribed or required for medical reasons: No Substance Use Type: Marijuana Substance Use Frequency: Daily Currently Displaying Signs/Symptoms of Drug Intoxication Withdrawal: No Domestic Abuse History: Do you feel safe in your current relationship?: No Current Relationship Is there a partner from a previous relationship who is making you feel unsafe now?: No Are you made to feel afraid or neglected: No Advance Directives: Advance Directives: No Advance Directives Information Provided: Yes Homicidal Assessment: Do you have a plan to hurt others: No Plan Nutrition Assessment: Recently lost weight without trying: Yes Eating poorly because of decreased appetite: Yes Nutrition Risks: No Nutritional Risk Poor oral hygiene: No Occupation Assessmet: service: No Home Medications and Allergies Current Medications: Current Medications Acetaminophen (Acetaminophen 325 Mg Tablet) 650 mg PO Q6H PRN PRN Reason: Pain, Mild 1-3,fever,headache Calcium Carbonate (Calcium Carbonate 750 Mg Tab.Chew) 750 mg PO Q4H PRN PRN Reason: Heartburn Docusate Sodium (Docusate Sodium 100 Mg Capsule) 100 mg PO BID [facility] Last Admin: 12/19/24 09:18 Dose: 100 mg Heparin Sodium (Porcine) (Heparin Sodium,Porcine 5,000 Unit/Ml Vial) 5,000 unit SUBCUT Q8H [facility] Last Admin: 12/19/24 05:19 Dose: 5,000 unit Lactated Ringer's (Lr) 1,000 mls @ 100 mls/hr IVCONT .Q10H [facility] Last Admin: 12/19/24 09:18 Dose: 100 mls/hr Magnesium Hydroxide (Milk Of Magnesia 30 Ml Oral.Susp) 30 ml PO DAILY PRN PRN Reason: Constipation Melatonin (Melatonin 3 Mg Tablet) 6 mg PO BEDTIME PRN PRN Reason: Insomnia Polyethylene Glycol (Polyethylene Glycol 3350 17 Gm Powd.Pack) 17 gm PO DAILY PRN PRN Reason: Constipation Senna (Sennosides 8.6 Mg Tablet) 17.2 mg PO BEDTIME [facility] Last Admin: 12/18/24 20:09 Dose: 17.2 mg Sodium Chloride (0.9 % Sodium Chloride Flush 3 Ml Syringe) 3 ml IVFLUSH QSHIFT [facility] Last Admin: 12/19/24 09:47 Dose: Not Given Home Medications ?Medication ?Instructions ?Recorded ?Confirmed ?Type zolpidem 10 mg tablet 10 mg PO BEDTIME PRN Sleep 09/01/24 12/18/24 History fluoxetine 40 mg capsule 80 mg PO DAILY 12/14/24 12/18/24 History Allergies Allergy/AdvReac Type Severity Reaction Status Date / Time No Known Allergies Allergy Verified 12/17/24 20:47 Exam Vital signs: Vital Signs Temp 98.8 F 12/19/24 11:12 Pulse 78 12/19/24 11:12 Resp 18 12/19/24 11:12 BP 145/79 H 12/19/24 11:12 Pulse Ox 100 12/19/24 11:12 O2 Del Method Room Air 12/19/24 11:12 Intake & Output 12/18/24 12/19/24 12/19/24 18:59 06:59 18:59 Intake Total 1785.000 / 2558.333 773.333 / 2558.333 980 / 980 Balance 1785.000 / 2558.333 773.333 / 2558.333 980 / 980 Intake: Intake, Oral Amount 620 / 620 Intake, IV Amount 1165.000 / 1938.333 773.333 / 1938.333 980 / 980 Pamidronate Disodium 60 mg In 0 260 / 260 .9 % Sodium Chloride 250 ml @ 130 mls/hr IV ONCE ONE Rx#: [id number] Lactated Ringers 1,000 ml @ 100 905.000 / 1678.333 773.333 / 1678.333 980 / 980 mls/hr IVCONT .Q10H [facility] Rx#: [id number] Other: Breakfast % Eaten 75% Lunch % Eaten 75% Eating (Feeding) Ability Independent Number of Unmeasured Voids 1 1 Urine Bathroom Urinal Last Bowel Movement 12/16/24 Stool Bathroom Weight 86.183 kg BMI result Body Mass Index 28.1 - Constitutional Present: no acute distress - Routine HEENT Exam Head: Present: normal inspection - Routine Respiratory Exam Present: CTAB. Absent: wheezes - Routine Cardiovascular Exam Cardiovascular: Present: RRR, S1, S2 - Routine Abdominal Exam Present: soft - Routine Extremities Exam Absent: pedal edema - Routine Skin Exam Present: intact - Routine Neurological Exam Present: alert, oriented X3 Data - Labs CBC & Chem 7: 12/18/24 06:41 12/19/24 06:01 Labs: Laboratory Last Values WBC 4.5 X10*3/uL (4.8-10.8) L 12/18/24 06:41 RBC 4.13 X10*6/uL (4.60-5.80) L 12/18/24 06:41 Hgb 10.2 g/dl (14.0-18.0) L 12/18/24 06:41 Hct 31.5 % (42.0-52.0) L 12/18/24 06:41 MCV 76.3 fL (80.0-98.0) L 12/18/24 06:41 MCH 24.7 pg (27.0-33.0) L 12/18/24 06:41 MCHC 32.4 g/dl (31.0-36.0) 12/18/24 06:41 RDW 16.9 % (11.0-16.0) H 12/18/24 06:41 Plt Count 190 X10*3/uL (160-400) 12/18/24 06:41 MPV 10.4 fL (9.4-12.4) 12/18/24 06:41 Immature Gran % (Auto) 0.4 % (0.0-0.4) 12/18/24 06:41 Neut % (Auto) 54.9 % (45-73) 12/18/24 06:41 Lymph % (Auto) 16.4 % (20-40) L 12/18/24 06:41 [place] % (Auto) 21.6 % (2-11) H 12/18/24 06:41 Eos % (Auto) 5.6 % (0-4) H 12/18/24 06:41 Baso % (Auto) 1.1 % (0-2) 12/18/24 06:41 Lymph # (Auto) 0.7 X10*3/uL (1.2-4.9) L 12/18/24 06:41 [place] # (Auto) 1.0 X10*3/uL (0.1-1.2) 12/18/24 06:41 Eos # (Auto) 0.3 X10*3/uL (0.0-0.4) 12/18/24 06:41 Baso # (Auto) 0.1 X10*3/uL (0.0-0.2) 12/18/24 06:41 Abs Immat Gran (auto) 0.02 X10*3/uL (0.00-0.03) 12/18/24 06:41 Absolute Neuts (auto) 2.4 x10*3/uL (2.0-8.3) 12/18/24 06:41 Absolute Nucleated RBC 0.000 X10*3/uL (0.0-0.012) 12/18/24 06:41 Nucleated RBC % (auto) 0.0 /100WBC (0.0-0.2) 12/18/24 06:41 Smear Tech's Comments VERIFIED 12/18/24 06:41 Absolute Retic 0.059 X10*6/uL (0.026-0.095) 12/18/24 08:54 Percent Retic 1.4 % (0.5-1.8) 12/18/24 08:54 Immature Retic Fraction 7.4 % (2.3-13.4) 12/18/24 08:54 Retic Hgb Equivalent 30.2 pg (30.0-35.0) 12/18/24 08:54 Hold Purple Top SEE NOTE 12/19/24 06:01 Sodium 138 mmol/L (135-145) 12/19/24 06:01 Potassium 3.9 mmol/L (3.3-5.1) 12/19/24 06:01 Chloride 107 mmol/L (96-108) 12/19/24 06:01 Carbon Dioxide 26 mmol/L (22-29) 12/19/24 06:01 Anion Gap 9 (12-20) L 12/19/24 06:01 BUN 13 mg/dL (9-16) 12/19/24 06:01 Creatinine 1.75 mg/dL (0.5-1.4) H 12/19/24 06:01 Estim Creat Clear Calc 65.2 12/19/24 06:01 Estimated GFR 45 12/19/24 06:01 Random Glucose 97 mg/dL (60-115) 12/19/24 06:01 Uric Acid 7.8 mg/dL (3.4-7.0) H 12/18/24 08:42 Calcium 12.1 mg/dL (8.4-10.2) H 12/19/24 06:01 Ferritin 247 ng/mL (20-250) 12/18/24 08:42 Total Bilirubin 0.2 mg/dL (0.0-1.0) 12/18/24 06:41 AST 18 U/L (5-37) 12/18/24 06:41 ALT 13 U/L (0-40) 12/18/24 06:41 Alkaline Phosphatase 89 U/L (39-117) 12/18/24 06:41 Lactate Dehydrogenase 115 U/L (118-273) L 12/18/24 06:41 Total Protein 6.9 g/dL (6.5-8.0) 12/18/24 06:41 Albumin 3.3 g/dL (3.5-5.0) L 12/18/24 06:41 Vitamin B12 495 pg/mL (200-900) 12/18/24 08:54 Folate 6.0 ng/mL (> or = 4.0) 12/18/24 08:54 Hep Bs Antigen Negative (Negative) 12/18/24 08:54 Hep Bs Antibody REACTIVE (Nonreactive) 12/18/24 08:54 Hep B Core Total Ab Nonreactive (Nonreactive) 12/18/24 08:54 Hepatitis C Ab (EIA) Nonreactive (Nonreactive) 12/18/24 08:54 HIV 1&2 Ab/P24 Ag 4thGn Nonreactive (Nonreactive) 12/18/24 08:54 - Imaging Radiologist's impression: ITS Impressions Needle Aspiration US 12/18/24 14:30 impression:. Ultrasound imaging there are multiple right axillary lymph nodes largest right inguinal lymph node is approximately 2.8 x 1.3 cm. Successful ultrasound-guided right axillary lymph node fine needle aspiration biopsy performed. Electronically signed by: Riky Riley MD 12/18/2024 04:40 PM EDT Assessment and Plan Patient Active problem list reviewed?: Yes (1) Lymphadenopathy Status: Acute Assessment and plan: 1. This is a 34-year-old black male presenting with hypercalcemia, renal insufficiency, splenomegaly and lymphadenopathy. This is concerning for lymphoma. CT chest without contrast performed 12/15/2024 shows mediastinal lymphadenopathy with lymph nodes measuring from 1.4-2.5 cm. Probable bilateral hilar lymphadenopathy, enlarged subcarinal lymph node, bilateral axillary lymph node larger in the right measuring 1.7 cm. Splenomegaly was seen on CT abdomen/pelvis performed 12/14/2024. Sarcoidosis is in the differential diagnosis. LDH is not elevated, uric acid level mildly elevated. His calcium level is down to 12.5 mg per dL, previously 13.8 mg/dL. Pamidronate 60 mg IV x1 to be given. PTH and PTHrP is pending. Hepatitis/HIV test submitted. He underwent FNA of right axillary lymph node await pathology report. His kidney functions remain elevated, kidney biopsy has been planned for Saturday. Discussed all of the above with patient and his friend. - Time Spent With Patient Time Spent with Patient (in minutes): 20
[2024-12-19 16:00] VITALS: BP 138/78; PULSE 111; RESP 18; TEMP 37.4; O2SAT 99
[2024-12-19] MEDS: 0.9 % Sodium Chloride Flush 3 ML SYRINGE IVFLUSH ×2 (17:22→19:43)
[2024-12-19 19:00] VITALS: BP 115/68; PULSE 99; RESP 20; TEMP 37.1; O2SAT 98
[2024-12-20] VITALS (7 sets, daily range): BP systolic 106–137; BP diastolic 51–69; PULSE 81–100; RESP 16–20; TEMP 36.6–37.6; O2SAT 97–100
[2024-12-20] MEDS: Heparin Sodium,Porcine 5,000 UNIT/ML VIAL 5000 UNIT SUBCUT ×2 (04:08→13:27)
[2024-12-20 08:02] LABS: Anion Gap 9 (12-20); Blood Urea Nitrogen 12 mg/dL (9-16); Carbon Dioxide 27 mmol/L (22-29); Chloride 106 mmol/L (96-108); Creatinine Clr Calc Pharmacy 70.9; Estimated Glomerular Filt Rate 50; Glucose Random 89 mg/dL (60-115); Potassium 3.7 mmol/L (3.3-5.1); Sodium 138 mmol/L (135-145)
--- NOTE | 2024-12-20 10:22 | HO.PM.IMPN ---
Subjective Subjective Date of Service: 12/20/24 Interval History: f/u on marcie, lymphadenopathy, hypercalcemia calcium is down to 11, renal function is trending down as Physical Exam Vital Signs: Vital Signs: Last Vital Signs Temp 99 F 12/20/24 07:56 Pulse 88 12/20/24 07:56 Resp 16 12/20/24 07:56 BP 120/65 12/20/24 07:56 Pulse Ox 100 12/20/24 07:56 O2 Del Method Room Air 12/20/24 07:56 BMI result Body Mass Index 28.1 Objective Data Active Medications Acetaminophen (Acetaminophen 325 Mg Tablet) 650 mg PO Q6H PRN PRN Reason: Pain, Mild 1-3,fever,headache Calcium Carbonate (Calcium Carbonate 750 Mg Tab.Chew) 750 mg PO Q4H PRN PRN Reason: Heartburn Docusate Sodium (Docusate Sodium 100 Mg Capsule) 100 mg PO BID [facility] Last Admin: 12/19/24 19:45 Dose: 100 mg Documented By: KARISSA Heparin Sodium (Porcine) (Heparin Sodium,Porcine 5,000 Unit/Ml Vial) 5,000 unit SUBCUT Q8H [facility] Last Admin: 12/20/24 04:08 Dose: 5,000 unit Documented By: KARISSA Magnesium Hydroxide (Milk Of Magnesia 30 Ml Oral.Susp) 30 ml PO DAILY PRN PRN Reason: Constipation Melatonin (Melatonin 3 Mg Tablet) 6 mg PO BEDTIME PRN PRN Reason: Insomnia Polyethylene Glycol (Polyethylene Glycol 3350 17 Gm Powd.Pack) 17 gm PO DAILY PRN PRN Reason: Constipation Senna (Sennosides 8.6 Mg Tablet) 17.2 mg PO BEDTIME [facility] Last Admin: 12/19/24 19:52 Dose: Not Given Documented By: KARISSA Non-Admin Reason: Patient Refused Sodium Chloride (0.9 % Sodium Chloride Flush 3 Ml Syringe) 3 ml IVFLUSH QSHIFT [facility] Last Admin: 12/19/24 19:43 Dose: 3 ml Documented By: KARISSA Labs 12/18/24 06:41 12/20/24 06:34 Labs: Laboratory Results - last 24 hr 12/20/24 12/20/24 06:34 07:10 Hold Purple Top SEE NOTE Anion Gap 9 L Estim Creat Clear Calc 70.9 Estimated GFR 50 Random Glucose 89 Calcium 11.0 H D Assessment and Plan (1) MARCIE (acute kidney injury): Status: Acute (2) Acute hyperkalemia: Status: Acute (3) Acute dehydration: Status: Acute Plan 34-year-old male with a past medical history of anxiety, depression, anemia, recent admission to the hospital for hypercalcemia, lymphadenopathy presented to the hospital today with a chief complaint of abnormal labs- Hypercalcemia and MARCIE Hypercalcemia, lymphadenoapathy, hilar adenopathy, DDx: lymphoma, sarcoid MARCIE improving received pamidronate 60 on 12/18 calcium is down to 11 continue ivf lymph node biopsy done on 12/18 planned for renal bx on 12/21 nephrology and hematology following bowel regimen for constipation DVT prophylaxis: SubQ heparin Code status: Full code ollow-up. Quality Stroke Does the patient have a stroke diagnosis?: No VTE Prior VTE?: No VTE Risk Level:: Medical - moderate - high VTE Device Contraindication: Treatment Not Indicated VTE Drug Contraindication: N/A - Med Ordered
[2024-12-20] MEDS: 0.9 % Sodium Chloride Flush 3 ML SYRINGE IVFLUSH (13:27)
[2024-12-20] MEDS: Lactated Ringers 1,000 ML 125 ML IVCONT (16:30)
[2024-12-21] VITALS (15 sets, daily range): BP systolic 114–143; BP diastolic 55–83; PULSE 67–88; RESP 16–22; TEMP 36.5–37.1; O2SAT 99–100
[2024-12-21] MEDS: Lactated Ringers 1,000 ML 125 ML IVCONT ×2 (00:36→07:58)
[2024-12-21 06:28] LABS: Anion Gap 8 (12-20); Blood Urea Nitrogen 16 mg/dL (9-16); Calcium 10.2 mg/dL (8.4-10.2); Carbon Dioxide 25 mmol/L (22-29); Chloride 109 mmol/L (96-108); Creatinine Clr Calc Pharmacy 74.2; Estimated Glomerular Filt Rate 52; Glucose Random 96 mg/dL (60-115); Potassium 3.8 mmol/L (3.3-5.1); Sodium 138 mmol/L (135-145)
--- NOTE | 2024-12-21 07:19 | HO.PM.IMPN ---
Subjective Subjective Date of Service: 12/21/24 Interval History: f/u on marcie, hypercalcemia, lymphadenopathy doing well, Cr improving and calcium is normal Physical Exam Vital Signs: Vital Signs: Last Vital Signs Temp 97.7 F 12/21/24 07:03 Pulse 88 12/21/24 07:03 Resp 16 12/21/24 07:03 BP 128/71 12/21/24 07:03 Pulse Ox 100 12/21/24 07:03 O2 Del Method Room Air 12/21/24 07:03 BMI result Body Mass Index 28.1 General: AO X 3, no acute distress Resp: CTA bilateral CVS: S1,S2,RRR GI: +BS, NT, no distention Skin: No rash Neuro: motor grossly intact Psych: appropriate affect Const: Other: General: AO X 3, no acute distress Resp: CTA bilateral CVS: S1,S2,RRR GI: +BS, NT, no distention Skin: No rash Neuro: motor grossly intact Psych: appropriate affect Objective Data Active Medications Acetaminophen (Acetaminophen 325 Mg Tablet) 650 mg PO Q6H PRN PRN Reason: Pain, Mild 1-3,fever,headache Calcium Carbonate (Calcium Carbonate 750 Mg Tab.Chew) 750 mg PO Q4H PRN PRN Reason: Heartburn Docusate Sodium (Docusate Sodium 100 Mg Capsule) 100 mg PO BID [facility] Last Admin: 12/20/24 19:57 Dose: Not Given Documented By: MARJORIE Non-Admin Reason: Patient Refused Heparin Sodium (Porcine) (Heparin Sodium,Porcine 5,000 Unit/Ml Vial) 5,000 unit SUBCUT Q8H [facility] Last Admin: 12/21/24 02:58 Dose: Not Given Documented By: MARJORIE Non-Admin Reason: procedure pending Lactated Ringer's (Lr) 1,000 mls @ 125 mls/hr IVCONT .Q8H [facility] Last Admin: 12/21/24 00:36 Dose: 125 mls/hr Documented By: MARJORIE Magnesium Hydroxide (Milk Of Magnesia 30 Ml Oral.Susp) 30 ml PO DAILY PRN PRN Reason: Constipation Melatonin (Melatonin 3 Mg Tablet) 6 mg PO BEDTIME PRN PRN Reason: Insomnia Polyethylene Glycol (Polyethylene Glycol 3350 17 Gm Powd.Pack) 17 gm PO DAILY PRN PRN Reason: Constipation Senna (Sennosides 8.6 Mg Tablet) 17.2 mg PO BEDTIME [facility] Last Admin: 12/20/24 19:58 Dose: Not Given Documented By: MARJORIE Non-Admin Reason: Patient Refused Sodium Chloride (0.9 % Sodium Chloride Flush 3 Ml Syringe) 3 ml IVFLUSH QSHIFT [facility] Last Admin: 12/21/24 01:07 Dose: Not Given Documented By: MARJORIE Non-Admin Reason: IV Running Labs 12/18/24 06:41 12/21/24 05:58 Labs: Laboratory Results - last 24 hr 12/20/24 12/20/24 12/21/24 06:34 07:10 05:58 Hold Purple Top SEE NOTE Anion Gap 9 L 8 L Estim Creat Clear Calc 70.9 74.2 Estimated GFR 50 52 Random Glucose 89 96 Calcium 11.0 H D 10.2 D Assessment and Plan (1) MARCIE (acute kidney injury): Status: Acute (2) Acute hyperkalemia: Status: Acute (3) Acute dehydration: Status: Acute Plan 34-year-old male with a past medical history of anxiety, depression, anemia, recent admission to the hospital for hypercalcemia, lymphadenopathy presented to the hospital today with a chief complaint of abnormal labs- Hypercalcemia and MARCIE Patient was admitted for management of hypercalcemia (13), lymphadenopathy including hilar adenopathy, and acute renal failure and/or possible CKD. For hypercalcemia, he was treated with IV fluids and received pamidronate 60 mg on 12/18. Gradually, calcium level has trended down from 13.6 on 12/17 to 10.2 today, 12/21. Further testing has included a PTH level, which is low; IgG and IgM levels are normal; IgA is elevated. Serum immunofixation is normal. Vitamin D level, PTH-related protein, and LEÓN level are pending. CT of chest has shown 1. Mediastinal lymphadenopathy as described. 2. Probable bilateral hilar lymphadenopathy. 3. Prominent bilateral axillary lymph nodes. Splenomegaly Differential diagnosis includes lymphoma and sarcoid. He had a right axillary lymph node biopsy on 12/18; result is pending. He was followed by Nephrology and Oncology and will continue to need outpatient follow-up. MARCIE?etiology unclear, possibly related to the above; he is having a kidney biopsy today, 12/21. CT of 4/7 showed no hydro, Creatine down from 1.75 to 1 .54 today. Outpatient follow up with nephrology and follow up on kidney biopsy result Bowel regimen for constipation. DVT prophylaxis: SubQ heparin Code status: Full code ollow-up. Quality Stroke Does the patient have a stroke diagnosis?: No VTE Prior VTE?: No VTE Risk Level:: Medical - moderate - high VTE Device Contraindication: Treatment Not Indicated VTE Drug Contraindication: N/A - Med Ordered
[2024-12-21] MEDS: 0.9 % Sodium Chloride Flush 3 ML SYRINGE IVFLUSH (07:59)
[2024-12-21 09:18] LABS: INTERNATIONAL NORM RATIO 1.2 (0.9-1.1); Prothrombin Time 13.5 SEC (10.9-12.4)
[2024-12-21] MEDS: fentaNYL citrate/PF 100 MCG/2 ML VIAL 25 MCG IVPUSH (10:00)
[2024-12-21] MEDS: Midazolam HCl 2 MG/2 ML VIAL 1 MG IVPUSH (10:00)
--- NOTE | 2024-12-21 10:29 | P.PNNP_ITS ---
Subjective Subjective Date of Service: 12/21/24 Interval history: Creatinine and calcium improved. For renal biopsy today Physical Exam 2 Vital Signs: Vital Signs: Last Vital Signs Temp 97.7 F 12/21/24 07:03 Pulse 79 12/21/24 10:22 Resp 21 H 12/21/24 10:22 BP 140/83 H 12/21/24 10:22 Pulse Ox 99 12/21/24 10:22 O2 Del Method Room Air 12/21/24 10:22 O2 Flow Rate 2 12/21/24 10:17 BMI result Body Mass Index 28.1 Const: General: no acute distress Orientation/consciousness: patient oriented x3 Eyes: EOM: EOMs intact bilaterally Neck: Neck: Yes supple Resp: Auscultation: diminished lung sounds Cardio: Rate: regular rate GI: Palpation (GI): Soft to palpation Neuro: General: patient oriented x3 and moves all extremities Objective Data Labs 12/18/24 06:41 12/21/24 05:58 Labs: Laboratory Results - last 24 hr 12/21/24 12/21/24 05:58 08:55 PT 13.5 H INR 1.2 H Sodium 138 Potassium 3.8 Chloride 109 H Carbon Dioxide 25 Anion Gap 8 L BUN 16 Creatinine 1.54 H Estim Creat Clear Calc 74.2 Estimated GFR 52 Random Glucose 96 Calcium 10.2 D Procedures Date of Service Date of Service: 12/21/24 Assessment & Plan Assessment and plan (1) MARCIE (acute kidney injury): Status: Acute (2) Lymphadenopathy: Status: Acute (3) Hypercalcemia: Status: Acute Plan MARCIE due to volume depletion from hypercalcemia- improving W/U as ordered and is in progress; Na palmidronate given Serum calcium normailzing; Serum calcium/ creatinine better Lymph node flow cytometry- no specific finding likely diagnosis- sarcoid but unsure yet; Renal biopsy today No steroids indicated now;Shall F/U in office in 2 weeks Progress Note: Quality Stroke Does the patient have a stroke diagnosis?: No
--- NOTE | 2024-12-21 13:09 | P.DS_ITS ---
DS: Providers Provider Date of Service: 12/21/24 Date of admission: 12/18/24 03:38 Date of discharge: 12/21/24 Primary care physician: Castro Manzanares MD Consults: 12/18/24 03:37 Consult to Hematology / Oncology Routine Consulting Provider: [facility] Oncology/Hematology Reason for consultation: lymphadenopathy Consult to Nephrology Routine Consulting Provider: [facility] Reason for consultation: Hypercalcemia DS: Diagnosis Discharge Diagnosis (1) MARCIE (acute kidney injury): Status: Acute (2) Lymphadenopathy: Status: Acute (3) Hypercalcemia: Status: Acute DS: Summary Hospital Course Hospital Course: admission hpi Chief Complaint: hypercalcemia 34-year-old male with a past medical history of anxiety, depression, anemia, recent admission to the hospital for hypercalcemia, lymphadenopathy presented to the hospital today with a chief complaint of abnormal labs. Patient reports that after discharge from the hospital he had a routine follow- up visit with his PCP today and has labs done again and noted to have elevated calcium levels; patient received a call from his PCP to go to the ER for further evaluation. Patient reports that he still feels constipated. Also has increased urination and thirst. Denies any abdominal pain. Denies any chest pain or palpitations. Denies any Nausea or vomiting. reports that he is scheduled to follow up with Hematology-Oncology for biopsy of his lymph nodes -Has not done yet. Review of all other systems is negative except mentioned above ER course: Per ER team, patient's exam was benign; on labs noted to have calcium levels of 13.8. Given IV fluids. Discussed with Nephrology who suggested zoledronic acid. Notified Pharmacy to obtain it. hospital course: 34-year-old male with a past medical history of anxiety, depression, anemia, recent admission to the hospital for hypercalcemia, lymphadenopathy presented to the hospital today with a chief complaint of abnormal labs- Hypercalcemia and MARCIE Patient was admitted for management of hypercalcemia (13), lymphadenopathy including hilar adenopathy, and acute renal failure and/or possible CKD. For hypercalcemia, he was treated with IV fluids and received pamidronate 60 mg on 12/18. Gradually, calcium level has trended down from 13.6 on 12/17 to 10.2 today, 12/21. Further testing has included a PTH level, which is low; IgG and IgM levels are normal; IgA is elevated. Serum immunofixation is normal. Vitamin D level, PTH-related protein, and LEÓN level are pending. CT of chest has shown 1. Mediastinal lymphadenopathy as described. 2. Probable bilateral hilar lymphadenopathy. 3. Prominent bilateral axillary lymph nodes. Splenomegaly Differential diagnosis includes lymphoma and sarcoid. He had a right axillary lymph node biopsy on 12/18; result is pending. He was followed by Nephrology and Oncology and will continue to need outpatient follow-up. MARCIE?etiology unclear, possibly related to the above; he is having a kidney biopsy today, 12/21. CT of 12/14 showed no hydro, Creatine down from 1.75 to 1 .54 today. Outpatient follow up with nephrology and follow up on kidney biopsy result Time Attestation Discharge Coordination Time (in mins): 40 Quality: Safe Use of Opioids Does Pt have an Active Cancer Diagnosis on the Problem List?: No Quality: Stroke Does the patient have a stroke diagnosis?: No Physical Exam Vital Signs: Vital Signs: Last Vital Signs Temp 98.7 F 12/21/24 12:02 Pulse 74 12/21/24 12:02 Resp 16 12/21/24 12:02 BP 114/65 12/21/24 12:02 Pulse Ox 100 12/21/24 12:02 O2 Del Method Room Air 12/21/24 12:02 O2 Flow Rate 2 12/21/24 10:17 BMI result Body Mass Index 28.1 Const: Other: General: AO X 3, no acute distress Resp: CTA bilateral CVS: S1,S2,RRR GI: +BS, NT, no distention Skin: No rash Neuro: motor grossly intact Psych: appropriate affect DS: Data Data Completed and Pending Pending studies at discharge: Pending at discharge 12/18/24 14:15 Cytology [PTH] Routine 12/21/24 10:52 Cytology [PTH] Routine Labs on day of discharge: Laboratory Results - last 24 hr 12/21/24 12/21/24 05:58 08:55 PT 13.5 H INR 1.2 H Sodium 138 Potassium 3.8 Chloride 109 H Carbon Dioxide 25 Anion Gap 8 L BUN 16 Creatinine 1.54 H Estim Creat Clear Calc 74.2 Estimated GFR 52 Random Glucose 96 Calcium 10.2 D Discharge Plan Discharge Anticipated Discharge Date/Time: 12/21/24 13:06 Patient Disposition: Home, Self-Care Discharge Diagnosis: Marcie, lymphadenopathy, hypercalecemia Referrals: Castro Manzanares MD [Primary Care Provider] - 1 Week Discharge Medications: Continued fluoxetine 40 mg capsule 80 mg PO DAILY zolpidem 10 mg tablet 10 mg PO BEDTIME PRN (Reason: Sleep) Discharge Orders: Discharge Order (Routine); Ordered 12/21/24 Ordered By: Colton Dave Diet: Advance to usual diet Activity on Discharge: As tolerated Stand Alone Forms: Patient Portal Discharge page Print Language: Guatemalan Care Plan Goals: recovery from renal failure, hypercalcemia and lymphadenopathy Health Concerns: failure, hypercalcemia and lymphadenopathy Plan of Treatment: Follow up with Nephrology, Dr. Martines on outpatient [facility], office will call you Assessment: see above
--- NOTE | 2024-12-21 13:20 | MHC.CM.PN ---
PT TO [place] HOME TODAY WITH NO SERVICES VIA PRIVATE TRANSPORT
[2024-12-21 15:43] LABS: Beta-2 Microglobulin, Serum 5.81 mg/L (< OR = 2.51)
[2024-12-22 08:05] LABS: ~Hepatitis A Antibody IgM Nonreactive (Nonreactive)
[2024-12-22 20:54] LABS: Angiotensin Converting Enzyme 166 U/L (9-67)
[2024-12-26 17:14] LABS: VITAMIN D (1,25 OH) D3 <8 pg/mL; Vit D (1,25-Dihydroxy) Total 105 pg/mL (18-72); Vitamin D (1,25 OH) D2 105 pg/mL
== END 2024-12-21 13:59 | disposition home or self-care (01) | DRG 952 ==
LOC: HO.ED 12-18 02:47 → HO.EDOVER 12-18 03:46 → HO.IMC 12-18 07:10
PROVIDERS: Internal Medicine; Internal Medicine Nephrology; Radiology Diagnostic Radiology; Admitting Provider Hospitalist; Emergency Provider Emergency Medicine; PCP Internal Medicine; Visit Provider Internal Medicine
DX: D86.9 Sarcoidosis, unspecified (principal); N17.9 Acute kidney failure, unspecified; C85.94 Non-Hodgkin lymphoma, unspecified, lymph nodes of axilla and upper limb; E83.52 Hypercalcemia; K59.00 Constipation, unspecified; Z87.891 Personal history of nicotine dependence; Z79.899 Other long term (current) drug therapy
CPT/HCPCS: 10005; 36415; 50200; 77012; 80048; 80053; 82164; 82232; 82310; 82607; 82652; 82728; 82746; 83615; 84550; 85025; 85045; 85610; 86704; 86706; 86709; 86803; 87340; 87389; 88173; 88184; 88185; 88300; 88305; 88313; 88346; 88348; 88350; 93005; 99152; 99285; J1644; J2003; J2250; J2430; J3010; J7120

== ENCOUNTER → 2024-12-18 03:13 | Outpatient (BNV) | payer BC, SELFPAY | PROVIDERS: Admitting Provider Hospitalist; Emergency Provider Emergency Medicine; PCP Internal Medicine; Visit Provider Internal Medicine Cardiovascular Disease | DX: E83.52 Hypercalcemia (principal) | CPT/HCPCS: 93010 ==

== ENCOUNTER 2024-12-18 03:38 | Outpatient (BNV) | payer BC, SELFPAY | END 2024-12-18 14:30 | PROVIDERS: Admitting Provider Hospitalist; Emergency Provider Emergency Medicine; PCP Internal Medicine; Visit Provider Radiology Diagnostic Radiology | DX: R59.0 Localized enlarged lymph nodes (principal) | CPT/HCPCS: 10005 ==

== ENCOUNTER 2024-12-18 03:38 | Outpatient (BNV) | payer BC, SELFPAY | END 2024-12-21 09:38 | PROVIDERS: Admitting Provider Hospitalist; Emergency Provider Emergency Medicine; PCP Internal Medicine; Visit Provider Radiology Diagnostic Radiology | DX: N17.9 Acute kidney failure, unspecified (principal); E87.5 Hyperkalemia | CPT/HCPCS: 50200; 77012; 99152 ==

== ENCOUNTER → 2024-12-18 03:38 | Outpatient (BNV) | payer BC, SELFPAY | PROVIDERS: Admitting Provider Hospitalist; Emergency Provider Emergency Medicine; PCP Internal Medicine; Visit Provider Internal Medicine Nephrology | DX: N17.9 Acute kidney failure, unspecified (principal); R59.1 Generalized enlarged lymph nodes; E83.52 Hypercalcemia | CPT/HCPCS: 99232 ==

== ENCOUNTER → 2024-12-18 03:38 | Outpatient (BNV) | payer BC, SELFPAY | PROVIDERS: Admitting Provider Hospitalist; Emergency Provider Emergency Medicine; PCP Internal Medicine; Visit Provider Internal Medicine | DX: N17.9 Acute kidney failure, unspecified (principal); E87.5 Hyperkalemia; E86.0 Dehydration | CPT/HCPCS: 99232; 99499 ==

== ENCOUNTER → 2024-12-18 03:38 | Outpatient (BNV) | payer BC, SELFPAY | PROVIDERS: Admitting Provider Hospitalist; Emergency Provider Emergency Medicine; PCP Internal Medicine; Visit Provider Internal Medicine | DX: R59.0 Localized enlarged lymph nodes (principal); E83.52 Hypercalcemia | CPT/HCPCS: 99232 ==